=== PATIENT | female | born 1950 | race Caucasian/White ===

== ENCOUNTER → 2019-01-15 | Day surgery (SDC) | payer MEDICARE ==
[2019-01-10 17:26] LABS: BASOPHILS # (AUTO) 0.1 (0.0-0.1); BASOPHILS % 0.7 % (0.0-1.0); EOSINOPHILS # (AUTO) 0.4 (0.0-0.4); EOSINOPHILS % 3.1 % (0.0-6.0); HEMATOCRIT 42.7 % (34.2-44.1); HEMOGLOBIN 14.6 g/dL (12.0-16.0); LYMPHOCYTES # (AUTO) 3.7 (1.0-3.2); LYMPHOCYTES % 31.6 % (18.0-39.1); MEAN CORPUSCULAR HEMOGLOBIN 29.3 pg (28-32); MEAN CORPUSCULAR HGB CONC 34.2 g/dL (31-35); MEAN CORPUSCULAR VOLUME 85.7 fL (81-99); MONOCYTES # (AUTO) 0.4 (0.2-0.8); MONOCYTES % 3.7 % (4.4-11.3); NEUTROPHILS % 60.6 % (38.7-80.0); PLATELET COUNT 304 x10e3/uL (140-360); RED BLOOD COUNT 4.98 x10e6/uL (3.6-5.1); RED CELL DISTRIBUTION WIDTH 13.1 % (11.7-14.4)
[~2019-01-15] MED LIST: BENICAR20 MG PO; DICYCLOMINE HCL20 MG PO; DIOVAN160 MG PO; FENTANYL CITRATE/PF 100MCG/2 ML INJ ONE; GLIMEPIRIDE4 MG PO; GLUCAGON FOR INJ 1 MG VIAL ONE; HUMALOG100 UNIT/3 SQ; HYDROCHLOROTHIA25 MG PO; HYOSCYAMINE SULFATE 0.5 MG/ML INJ ONE; KLONOPIN1 MG PO; LIDOCAINE HCL 2% LOCAL INJ 5 ML SDV VIAL INJ ONE; MACROBID 100 M100 MG PO; MEDROL4 MG/DOSE-; METFORMIN HCL500 MG PO; MIDAZOLAM HCL 2 MG/2 ML VIAL ONE; MIRTAZAPINE15 MG PO; NEXIUM20 MG PO; PANTOPRAZOLE SO40 MG PO; PROPOFOL IV EMULSION 10 MG/ML 50 ML VIAL ONE; ULTRAM50 MG PO; ZESTORETIC 20-1 EAC1 PO
--- NOTE | 2019-01-16 06:15 | Operative Report ---
DATE OF PROCEDURE: 01/15/2019 SURGEON: Drew Riddle MD REFERRING PHYSICIAN: Dr. Braulio Rae in [place], [place]. PROCEDURE: Esophagogastroduodenoscopy with biopsies and colonoscopy with polypectomy. INDICATIONS FOR EGD: Upper abdominal pain, heartburn, indigestion. INDICATIONS FOR COLONOSCOPY: Lower abdominal pain and new onset constipation. MEDICATION: The patient was done under MAC, please see anesthesiologist's note. PROCEDURE IN DETAIL: With the patient in left lateral decubitus position, flexible fiberoptic Olympus gastroscope was introduced into the esophagus under direct visualization without any difficulty. There was some patchy erythema noted in distal esophagus. A minute tongue of velvety red mucosa was noted to extend proximally from the GE junction that was biopsied to rule out Cordoba's. The scope was then advanced with ease into the stomach and mucosa overlying the antrum and the body revealed some patchy erythema and low-grade to moderate edema and biopsies were obtained and sent to stain for H pylori. Some hyperplastic-appearing polyps were noted in the body of the stomach and somewhat partially excised with the cold biopsy forceps. The pylorus was intubated with ease and the scope was advanced all the way to the second portion of the duodenum. The scope was then withdrawn slowly, the mucosa overlying the second portion as well as the duodenal bulb grossly appeared to be within normal limits. Biopsies were obtained and sent to rule out sprue. The scope was then withdrawn back into the stomach and retroflexed, the mucosa overlying the fundus and cardia appeared to be within normal limits. The scope was then straightened out, it was subsequently withdrawn. The patient tolerated the procedure well. IMPRESSION: 1. Distal esophagitis, mild. 2. Rule out Cordoba esophagus. 3. Gastritis, biopsied, biopsies sent to stain for H pylori. 4. Gastric polyps, body, hyperplastic appearing, some partially excised with the cold biopsy forceps. 5. Rule out sprue. PLAN: Follow up histology. Increase Protonix to 40 mg one p.o. a.c. b.i.d. The patient was then turned around. After adequate lubrication of the anal canal, a flexible fiberoptic Olympus colonoscope was inserted into the rectum and advanced all the way to the cecum. The distal sigmoid colon was sharply angulated and negotiated with some difficulty. Of note, diverticular disease was noted throughout the colon. The scope was then withdrawn slowly and mucosa overlying the cecum, ascending colon, transverse colon other than for diverticular disease appeared grossly to be within normal limits. There were some retained stools, but visualization was fair. One polyp was hot biopsied from the descending colon. Diverticular disease was also noted in the sigmoid. The rectum grossly appeared to be within normal limits. The scope was then retroflexed into the distal rectum and small internal hemorrhoids were noted, none of which was actively bleeding. The scope was then straightened out, it was subsequently withdrawn, and patient tolerated procedure well. IMPRESSION: 1. Pandiverticulosis. 2. Descending colon polyp, hot biopsied. 3. Sharply angulated distal sigmoid colon. 4. Internal hemorrhoids none actively bleeding. PLAN: Follow up histology. Initiate high-fiber, low-fat diet. Initiate high-fiber supplement. Start Linzess 145 mcg one p.o. q.a.m. a.c. The patient might benefit from a followup colonoscopy in 5 years. Drew Riddle MD [facility] /[id number] cc: Dr. Braulio Rae [facility]
--- OUTSIDE RECORDS SUMMARY | 2019-01-17 17:38 | XMS REPORT ---
Author Author [facility] Address Unknown Phone Unavailable Care Team Providers Care Recording Artist Name Role Phone MIKE LOZOYA PP Unavailable TROY HERNANDEZ M.D. Unavailable Unavailable ELAYNE YU M.D. Unavailable Unavailable MITCH FRANCISCO II, M.D. Unavailable Unavailable Problems This patient has no known problems. Allergies, Adverse Reactions, Alerts This patient has no known allergies or adverse reactions. Medications This patient has no known medications. Encounters Start Date/Time End Date/Time Encounter Type Admission Type Attending [facility] Care Department Encounter ID 2017-11-03 05:45:00 Inpatient [facility] [id number] 2016-08-28 15:37:00 Inpatient [facility] [id number] 2017-10-29 06:53:00 2017-10-29 06:53:00 Outpatient [facility] [id number] 2017-08-31 17:59:00 2017-08-31 17:59:00 Outpatient [facility] [id number] 2016-11-18 01:45:00 2016-11-17 19:00:00 Inpatient [facility] [id number] 2016-11-03 16:23:00 2016-11-03 16:23:00 Emergency [facility] [id number] 2016-10-31 13:39:00 2016-10-31 13:39:00 Outpatient [facility] [id number] 2016-10-21 08:29:00 2016-10-21 08:29:00 Outpatient [facility] [id number] 2016-10-11 15:30:00 2016-10-11 15:30:00 Emergency [facility] [id number] Results Test Description Test Time Test Comments Text Results Atomic Results Result Comments CT Abdomen and Pelvis w/o Contrast 2018-12-17 13:32:29 Patient: TYLER STALLINGS Date/Time12/17/2018 13:17 CDTReason for ExamAbdominal painReportCT ABDOMEN AND CT PELVIS WITHOUT CONTRAST: MULTIPLANAR REFORMATSREASON FOR STUDY: Abdominal painRadiation dose lowering techniques were used with automated exposure control, adjusting the mA according to patient's size.COMPARISON: May 20, 2018.Multiple transverse images were obtained through the upper abdomen and the pelvis. Images were reconstructed in coronal and in sagittal planes. No intravenous or oral contrast material was administered, as ordered. Images were started at the lung bases and extended through the upper abdomen to below the pubic symphysis without IV or oral contrast. Examination is tailored as a stone protocol. The partially visualized lung bases appear clear. Calcified granuloma seen within the right lobe of the liver. Tiny calcified granuloma seen within the spleen. There are no calcified gallstones. The right adrenal gland appears unremarkable. Left adrenal nodule is again noted unchanged. Pancreas is atrophic. There are no intrarenal calculi and there is no obstructive uropathy. Cortical scarring of the right kidney is noted. Small 8 mm hyperdense cyst is seen within the inferior pole of the right kidney. Abdominal aorta and IVC are normal in caliber. There is no retroperitoneal or mesenteric adenopathy. Images were extended below the pubic symphysis. Uncomplicated diverticular changes are seen within the descending colon and sigmoid colon. No pericolonic inflammatory changes were identified to suggest acute diverticulitis. Prior hysterectomy is noted. There are degenerative vacuum disks with disc space narrowing at L4-L5 and L5-S1.IMPRESSION:1. No acute intra-abdominal abnormality.2. Uncomplicated diverticulosis.3. Left adrenal nodule unchanged.4. Prior hysterectomy. Final Dictated by: MD Farley Arthur LDictated DT/TM: 12/17/2018 1:27 pmSigned by: MD Farley Arthur LSigned (Electronic Signature): 12/17/2018 1:32 pm XR Abdomen 2 Views 2018-12-16 19:58:16 Patient: TYLER STALLINGS Date/Time12/16/2018 19:30 CDTReason for ExamAbdominal painReportEXAMINATION: KUB: AP upright and supine viewsCOMPARISON: CT abdomen and pelvis with contrast 05/20/2018CLINICAL INFORMATION: Abdominal painFINDINGS:No abnormal abdominal calcifications are seen. Pelvic phleboliths. The soft tissue shadows are normal. The abdominal gas pattern is within normal limits. Osseous structures are grossly intact. Visualized lung bases are clear.IMPRESSION:Nonspecific nonobstructive bowel gas pattern. Final Dictated by: MD Britany, YirDictated DT/TM: 12/16/2018 7:57 pmSigned by: MD Garg SamerSigned (Electronic Signature): 12/16/2018 7:58 pm US Art/Vein Abd/Pelvis/Scrotal Complete 2018-05-27 14:16:56 Patient: TYLER STALLINGS Date/Time05/27/2018 11:35 CDTReason for Examab pain;Please specifyReportTHE OFFICIAL RADIOLOGY REPORT BEGINS BELOW THIS LINEEXAM: Duplex Arterial Sonography of the Superior Mesenteric Artery, Celiac [place], Portal Vein, and Hepatic Veins.TECHNIQUE: Serial multiplanar grayscale imaging with and without Doppler interrogation including color flow imaging and Doppler waveform analysis. Fasting state.HISTORY: Abdominal pain.COMPARISON: None.FINDINGS:SMA:* Peak systolic velocity: 152 cm/s, normal < 275 cm/s, fasting state.* Peak diastolic velocity: 9.9 cm/s, normal < 45 cm/s, fasting state.Celiac [place]:* Peak systolic velocity: 207 cm/s, normal < 200 cm/s, fasting state.* Peak diastolic velocity: 33.4 cm/s, normal < 45 cm/s, fasting state.Portal Vein:* Peak systolic velocity: 2 cm/s, normal > 16 cm/s.* Diameter: 1.2 cm, normal < 1.3 cm.* Directional flow: Hepatopetal.Hepatic Veins:* Patency: Normal.IMPRESSION: Borderline abnormal velocity data was obtained from the celiac axis. Consider correlation with CTA or MRA for further evaluation of possible stenosis.THE OFFICIAL RADIOLOGY REPORT ENDS ABOVE THIS LINE Final Dictated by: MD Stock William BerryDictated DT/TM: 05/27/2018 2:10 pmSigned by: MD Stock William BerrySigned (Electronic Signature): 05/27/2018 2:16 pm XR Abdomen 2 Views 2018-05-25 17:29:46 Patient: TYLER STALLINGS Date/Time05/25/2018 16:58 CDTReason for ExamAbdominal painReportInformation: Left lower quadrant abdominal pain and constipationAbdomen 2 viewsCorrelation was made with patient's recent CT scan of the abdomen and pelvis.The bowel gas pattern is nonspecific with retained fecal matter within the colon. There are no gross masses, suspicious calcifications or free intraperitoneal air. Degenerative changes of the osseous structures is again noted.IMPRESSION:1. No significant intra-abdominal pathology2. Constipation changes. Final Dictated by: MD Metz Gustavo MDictated DT/TM: 05/25/2018 5:28 pmSigned by: MD Metz Gustavo MSigned (Electronic Signature): 05/25/2018 5:[address] Abdomen and Pelvis w/ Contrast 2018-05-20 10:43:33 Patient: TYLER STALLINGS Date/Time05/20/2018 10:18 CDTReason for ExamLeft sided abdominal pain; hx of diverticulitis;Abdominal painReportInformation: Abdominal pain, nausea, diverticulosis and diabetesCT scan of the abdomen and pelvis with oral and intravenous contrastMultiplanar reformatted images of the abdomen and pelvis were obtained following the oral administration of contrast medium and the intravenous injection of 100 mL of Omnipaque 300 nonionic contrast mediumCorrelation was made with the patient's prior CT scan of the abdomen and p richar dated 03/25/2018Left lung base scarring is again noted. Hepatic steatosis changes are again identified. No enhancing liver masses or biliary tree dilatation is noted. Calcified granuloma of the spleen again identified. Left adrenal gland nodule is stable. The pancreas is grossly unremarkable. Bilateral cortical renal cysts are again demonstrated. Atherosclerotic changes of the abdominal aorta and iliac arteries is again noted. Multiple colonic diverticula are again identified. No gross diverticulitis changes were demonstrated. Retained fecal matter noted within the colon. No focal fluid collections were noted. The patient is status post hysterectomy. Urinary bladder margins are preserved. No free intraperitoneal fluid is noted. 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 Left lower lobe scarring2. Hepatic steatosis3. Stable and unchanged left adrenal gland nodule4. Bilateral cortical renal cysts5. Colonic diverticulosis6. Status post hysterec candelaria.7. Constipation changes.Radiation dose lowering techniques were used with automated exposure control, adjusting the mA according to patient's size. Final Dictated by: MD Metz Gustavo MDictated DT/TM: 05/20/2018 10:37 amSigned by: MD Metz Gustavo MSigned (Electronic Signature): 05/20/2018 10:43 am XR CHEST 2 VIEWS 2017-11-02 12:44:27 CHEST 2 VIEW: PA and lateral viewsREASON FOR STUDY: Preoperative respiratory examination for partialnephrectomyFINDINGS:The heart and mediastinum are within normal limits. There are no activeinfiltrates or fluid. Bony structures appear intact. . No othersignificant findings. IMPRESSION: No active cardiopulmonary process identified. [id number]&PELVIS W/CONTRAST 2016-11-18 07:50:[address] PELVIS WITH CONTRAST: HISTORY: Abdominal pain, feverCOMPARISON: CT of 10/11/2016Multiple transverse images were obtained through the upper abdomen andthrough the pelvis during rapid intravenous administration of 100 mL ofIsovue-300 contrast material. Radiation reduction was achieved by usingautomatic exposure control, adjusting the mA according to the patient'ssize.No focal abnormalities are seen in the liver. No calcified gallstonesare seen in the gallbladder. The spleen is unremarkable. The pancreashas a normal appearance. No abnormalities are seen in the kidneys. No enlarged lymph nodes areseen in the upper abdomen or pelvis.No bowel distention is demonstrated. The appendix has a normal CTappearance.Multiple diverticula are seen in the descending and sigmoid colon. Thereis stranding noted around the mid sigmoid colon on the right side of thepelvis. No abnormal fluid collections or free air are identified.No masses are seen in the pelvis.IMPRESSION: 1. Findings of diverticulitis involving the mid sigmoid colon asdescribed.2. Diverticulosis of the descending and sigmoid colon.Preliminary report was faxed to the emergency room by Dr. Cordero at [id number]. XR ABDOMEN ACUTE COMPLETE W CHEST 2016-11-18 06:28:47 History: Constipation, abdominal painABDOMEN COMPLETE, 3 VIEWS:COMPARISON: 11/03/2016Supine and upright views of the abdomen were obtained.There is mild degenerative changes in the lumbar spine. Phleboliths areseen in the pelvis.The bowel gas pattern is normal. No free air or mass effect is observed.IMPRESSION:No significant abnormality is demonstrated.CHEST SINGLE VIEW:COMPARISON: 11/03/2016Cardiomediastinal structures are within normal limits. No pleural fluid or pulmonary infiltrates are identified. Mild scarringis seen at the left lower lung. The bony architecture appears intact, where adequately seen.IMPRESSION: No active cardiopulmonary process is identified. XR ABDOMEN ACUTE COMPLETE W CHEST 2016-11-03 19:48:37 XR ABDOMEN ACUTE COMPLETE W CHESTDIAGNOSIS: Abdominal painThe heart and mediastinum are stable. Fibrosis is unchanged in the leftlower lobe. No consolidation or pleural fluid is identified. The chestis unchanged since 07/30/2016.Postoperative changes are noted from a lower cervical fusion.The bowel gas pattern is unobstructed with a large amount of fecaldebris in the colon. 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 [id number]&PELVIS W/CONTRAST 2016-10-12 07:30:53 CT ABDOMEN AND PELVIS WITH CONTRAST:CLINICAL INFORMATION: Abdominal pain and distention. History ofulcerative colitis and diabetes. Diverticulitis.CORRELATION: June 14, 2016.Multiple transverse image s were obtained through the abdomen and pelvisafter oral contrast and during the IV administration of 95 mL ofIsovue-300 contrast material. The images were reformatted in the coronaland sagittal planes. Radiation dose lowering techniques were used withautomated exposure control, adjusting the mA according to patient'ssize.There are a few small bilateral renal cysts measuring up to 2 cm indiameter. The kidneys are otherwise unremarkable. There are noabnormalities seen in the ureters, or urinary bladder. Hypoattenuationof the liver is consistent with fatty infiltration. No focalabnormalities are seen in the liver or gallbladder. The spleen has anormal appearance. The pancreas is unremarkable. No masses or abnormalfluid collections are identified. There is sigmoid diverticulosis. Thereare no inflammatory changes. The uterus has been removed. Small pelviccalcifications resemble phleboliths. There is a degenerated disc and thelumbar spine at L4-5. There is lumbar facet arthrosis.IMPRESSION: 1. Fatty liver.2. Bilateral renal cysts3. 1.6 cm left adrenal nodule.4. Hysterectomy.5. Diverticulosis.6. Degenerative changes in the lumbar spine.7. There are no significant changes.The report was faxed to Dr. Aburto by Dr. Lockett on 10/11/2016 at 19:08hours. XR ABDOMEN COMPLETE 2016-10-11 15:59:06 ABDOMEN TWO VIEWS:REASON FOR STUDY: Abd painThere is no evidence of free air. There is mild to moderate colonicfecal retention without signs of obstruction. There are no abnormalabdominal or pelvic calcifications noted. The bones appear normal. IMPRESSION: Mild to moderate colonic fecal retention with no signs ofobstruction. No significant changes compared to 06/26/2016.
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
--- OUTSIDE RECORDS SUMMARY | 2019-01-17 17:38 | XMS REPORT | Continuity of Care Document ---
Author Author [facility] Organization [facility] Address Unknown Phone Unavailable Care Team Providers Care Velvet Steamer Name Role Phone DO Rae Christophe A. DO PCP Insurance Providers Guarantor YomiJosé Antonioa Address [address] [place] [address] Email N Payer [facility] Claim Division Policy Number [id number] Subscriber's Name Mariam Stallings Relationship Self / Same As Patient Group Number PLAN F Group Name MEDICARE SUPPLEMENT Effective Date 18 Payer Medicare Policy Number [id number] Subscriber's Name Mariam Stallings Relationship Self / Same As Patient Group Number NA Group Name MEDICARE Effective Date 13 Advance Directives Directive Response Recorded Date/Time Does the Patient have an Advance Directive? No 12/11/18 2:25pm Chief Complaint and Reason for Visit Chief Complaint Abdominal Pain Reason for Visit Constipation Problems Medical Problem Onset Date Status Chest [...] Abdominal pain in female patient Unknown Acute Constipation Unknown Acute Medications Current Home Medications Medication [...] A Day 10 Days 20 Capsule 10/15/18 Hydrocortisone/Pramoxine (Proctofoam-Hc) 10 Gm Foam 1 Applic Rectal Three Times A Day as needed for Discomfort 7 Days 10 Gram 12/11/18 Lactulose (Lactulose Liq,Constulose Liq, Enulose Liq) 10 [...] Every 4 Hours as needed for Pain [id number]/Sod Sulf,Bicarb,Cl/Kcl (Colyte) 4,000 Ml Soln.recon 4,000 Ml [...] Status Hx Tobacco Use Y - ECIG CURRENTLY 12/11/2018 2:25pm Not Applicable Not Applicable Smoking Status Start Date Stop Date Former Smoker Hospital Discharge Instructions No hospital discharge instruction information available. Plan of Care Discharge Date 12/11/18 8:48pm Disposition HOME, SELF-CARE 01 Condition at Discharge Stable Instructions/Education Provided Constipation, Adult (DC) Prescriptions See Medication Section Referrals ROLY RAE DO Address: [address] [place] [phone] Additional Instructions/Education Follow-up with your GI doctor. Return to the ER for any new or concerning symptoms. Functional Status Query Response Date Recorded Onset Within the Last 7 Days No Problem Identified December 11, 2018 2:25pm Allergies, Adverse Reactions, Alerts Allergen Type Severity [...] Recorded Date/Time HX of Pneumococcal Vaccine No 12/11/18 2:25pm HX of Influenza Vaccine No 12/11/18 2:25pm Tetanus Status Less Than 5 Years 12/11/18 2:25pm Vital Signs Acute Vital Signs Vital Response Date/Time Temperature (Fahrenheit) 98.0 degrees F (97.6 - 99.5) 12/11/2018 8:44pm Pulse Rate (adult) 59 bpm (60 - 100) 12/11/2018 7:56pm Pulse Rate 70 bpm 12/11/2018 8:44pm Respiratory Rate 16 breaths per minute (12 - 24) 12/11/2018 5:20pm Respiratory Rate 16 breaths per minute 12/11/2018 8:44pm Blood Pressure Systolic 112 mm Hg (100 - 140) 12/11/2018 7:56pm Blood Pressure Systolic 113 mm Hg 12/11/2018 8:44pm Blood Pressure Diastolic 63 mm Hg (60 - 90) 12/11/2018 7:56pm Blood Pressure Diastolic 72 mm Hg 12/11/2018 8:44pm Height 5 ft 4 in 12/11/2018 2:21pm Weight 164 lb 12/11/2018 2:21pm Body Mass Index 28.1 kg/m^2 12/11/2018 2:21pm Results Laboratory Results Test Name Result Units Flags Reference Collection Date/Time Result Date/Time Comments Neutrophils % (Manual) 48 % 42-75 11/22/2018 [...] Morphology Normal 11/22/2018 8:00pm 11/22/2018 10:07pm Urine RBC 0-2 /HPF 0-2 11/22/2018 7:45pm [...] Seen /HPF None 11/22/2018 7:45pm 11/22/2018 9:03pm Lipase 31 U/L 13-60 11/22/2018 8:00pm 11/22/2018 9:03pm White Blood Count 8.6 10*3/uL 4.5-11.5 12/11/2018 2:40pm 12/11/2018 3:10pm Red Blood Count 5.09 10*6/uL 3.8-5.1 12/11/2018 2:40pm 12/11/2018 3:10pm Hemoglobin 15.1 g/dL 12.0-15.2 12/11/2018 2:40pm 12/11/2018 3:10pm Hematocrit 44.8 % 34.0-45.5 12/11/2018 2:40pm 12/11/2018 3:10pm Mean Corpuscular Volume 88 fL 80-94 12/11/2018 2:40pm 12/11/2018 3:10pm Mean Corpuscular Hemoglobin 29.7 pg 27.0-33.0 12/11/2018 2:40pm 12/11/2018 3:10pm Mean Corpuscular Hemoglobin Concent 33.7 g/dL 33.0-37.0 12/11/2018 2:40pm 12/11/2018 3:10pm Red Cell Distribution Width 13.4 % 10.7-14.5 12/11/2018 2:40pm 12/11/2018 3:10pm Platelet Count 296 10*3/uL 150-450 12/11/2018 2:40pm 12/11/2018 3:10pm Mean Platelet Volume 10.2 fl 5.7-10.7 12/11/2018 2:40pm 12/11/2018 3:10pm Neutrophils (%) (Auto) 55 % 47-75 12/11/2018 2:40pm 12/11/2018 3:10pm Immature Granulocyte % (Auto) 1 % H 0-0 12/11/2018 2:40pm 12/11/2018 3:10pm Lymphocytes (%) (Auto) 38 % 25-44 12/11/2018 2:40pm 12/11/2018 3:10pm Monocytes (%) (Auto) 5 % 3-10 12/11/2018 2:40pm 12/11/2018 3:10pm Eosinophils (%) (Auto) 2 % 0-7 12/11/2018 2:40pm 12/11/2018 3:10pm Basophils (%) (Auto) 1 % 0-1 12/11/2018 2:40pm 12/11/2018 3:10pm Nucleated Red Blood Cells % 0.0 % 0-0.2 12/11/2018 2:40pm 12/11/2018 3:10pm Neutrophils # (Auto) 4.7 10*3/uL 1.3-6.7 12/11/2018 2:40pm 12/11/2018 3:10pm Immature Granulocyte # (Auto) 0.0 10*3/uL 0.0-0.0 12/11/2018 2:40pm 12/11/2018 3:10pm Lymphocytes # (Auto) 3.2 10*3/uL 1.4-4.1 12/11/2018 2:40pm 12/11/2018 3:10pm Monocytes # (Auto) 0.4 10*3/uL 0-1.3 12/11/2018 2:40pm 12/11/2018 3:10pm Eosinophils # (Auto) 0.1 10*3/uL 0-0.8 12/11/2018 2:40pm 12/11/2018 3:10pm Basophils # (Auto) 0.1 10*3/uL 0-0.1 12/11/2018 2:40pm 12/11/2018 3:10pm Nucleated Red Blood Cells # 0.00 10*3/uL 0-0.01 12/11/2018 2:40pm 12/11/2018 3:10pm Manual Differential Not Ind 12/11/2018 2:40pm 12/11/2018 3:10pm Urine Source URINE 12/11/2018 3:23pm 12/11/2018 3:30pm Urine Color Colorless Yel-Piper * 12/11/2018 3:23pm 12/11/2018 3:44pm Urine Appearance Clear Clear * 12/11/2018 3:23pm 12/11/2018 3:44pm Urine pH 7.0 5.0-8.0 12/11/2018 3:23pm 12/11/2018 3:44pm Urine Specific [place] 1.006 1.005-1.030 12/11/2018 3:23pm 12/11/2018 3:44pm Urine Protein Negative mg/dL Negative * 12/11/2018 3:23pm 12/11/2018 3:44pm Urine Glucose (UA) Negative mg/dL Negative * 12/11/2018 3:23pm 12/11/2018 3:44pm Urine Ketones Negative mg/dL Negative * 12/11/2018 3:23pm 12/11/2018 3:44pm Urine Occult Blood Negative Negative * 12/11/2018 3:23pm 12/11/2018 3:44pm Urine Nitrite Negative Negative 12/11/2018 3:23pm 12/11/2018 3:44pm Urine Bilirubin Negative mg/dL Negative 12/11/2018 3:23pm 12/11/2018 3:44pm Urine Urobilinogen Negative mg/dL 0.0-1.0 12/11/2018 3:23pm 12/11/2018 3:44pm Urine Leukocyte Esterase Negative Epifanio/uL Negative 12/11/2018 3:23pm 12/11/2018 3:44pm Microscopic Urinalysis (T) Not Ind 12/11/2018 3:23pm 12/11/2018 3:44pm Urinalysis Comment * * 12/11/2018 3:23pm 12/11/2018 3:44pm Ref Range=* Clinical evaluation required. Sodium Level 142 mmol/L 136-145 12/11/2018 2:40pm 12/11/2018 3:28pm Potassium Level 3.9 mmol/L 3.5-5.1 12/11/2018 2:40pm 12/11/2018 3:28pm Chloride Level 102 mmol/L 98-107 12/11/2018 2:40pm 12/11/2018 3:28pm Carbon Dioxide Level 22 mmol/L L 24-33 12/11/2018 2:40pm 12/11/2018 3:28pm Anion Gap 22 H 8-18 12/11/2018 2:40pm 12/11/2018 3:28pm Blood Urea Nitrogen 6 mg/dL L 8-23 12/11/2018 2:40pm 12/11/2018 3:28pm Creatinine 0.8 mg/dL 0.7-1.3 12/11/2018 2:4012/11/2018 3:28pm Estimat Glomerular Filtration Rate 75 50-100 12/11/2018 2:40pm 12/11/2018 3:28pm Stages of Patients with Estimated GFR Known [...] the result provided by 1.21. Glucose Level 88 mg/dL 60-100 12/11/2018 2:40pm 12/11/2018 3:28pm Calcium Level 10.2 mg/dL 8.3-10.5 12/11/2018 2:4012/11/2018 3:28pm Magnesium Level 2.08 mg/dL 1.70-2.55 12/11/2018 2:40pm 12/11/2018 3:28pm Total Bilirubin 0.3 mg/dL 0.0-1.0 12/11/2018 2:4012/11/2018 3:28pm Aspartate Amino Transf (AST/SGOT) 24 U/L 0-32 12/11/2018 2:40pm 12/11/2018 3:28pm Alanine Aminotransferase (ALT/SGPT) 16 U/L 0-33 12/11/2018 2:40pm 12/11/2018 3:28pm Total Protein 8.2 g/dL 6.4-8.3 12/11/2018 2:40pm 12/11/2018 3:28pm Albumin 4.7 g/dL 3.5-5.0 12/11/2018 2:40pm 12/11/2018 3:28pm Alkaline Phosphatase 77 U/L 53-154 12/11/2018 2:40pm 12/11/2018 3:28pm Procedures Procedure Status Date Provider(s) ROUTINE VENIPUNCTURE Completed 11/22/18 CT ABD & PELV W/CONTRAST Completed 11/22/18 COMPREHEN METABOLIC PANEL Completed 11/22/18 URINALYSIS AUTO W/O SCOPE Completed 11/22/18 ASSAY OF LIPASE Completed 11/22/18 COMPLETE CBC W/AUTO DIFF WBC Completed 11/22/18 HYDRATE IV INFUSION ADD-ON Completed 11/22/18 THER/PROPH/DIAG INJ IV PUSH Completed 11/22/18 TX/PRO/DX INJ NEW DRUG ADDON Completed 11/22/18 EMERGENCY DEPT VISIT Completed 11/22/18 Transparent film <=16 sq in Completed 11/22/18 Self-adher band w>=3" <5"/yd Completed 11/22/18 Morphine sulfate injection Completed 11/22/18 Ondansetron hcl injection Completed 11/22/18 Normal saline solution infus Completed 11/22/18 Completed 11/22/18 Computed tomography of abdomen and pelvis with contrast Completed 11/22/18 JONO LOCKWOOD MD ECG (electrocardiogram) Active 12/11/18 JENNA GOMEZ MD X-ray of abdomen, single view Completed 12/11/18 JENNA GOMEZ MD X-ray of chest, single view Completed 12/11/18 JENNA GOMEZ MD Encounters Encounter Location Arrival/Admit Date Discharge/Depart Date Attending Provider Departed Emergency Room [facility] 12/11/18 2:24pm 12/11/18 8:48pm ZANA BURGOS III, MD Departed Emergency Room [facility] 11/22/18 2:53pm 11/23/18 1:30am JONO LOCKWOOD MD Recent Diagnosis Constipation
== END | disposition home or self-care (01) ==
LOC: OR 13:42
PROVIDERS: ATTEND Internal Medicine Gastroenterology
DX: D12.4 Benign neoplasm of descending colon (principal); K31.7 Polyp of stomach and duodenum; K21.0 Gastro-esophageal reflux disease with esophagitis; K29.80 Duodenitis without bleeding; K29.70 Gastritis, unspecified, without bleeding; K57.30 Diverticulosis of large intestine without perforation or abscess without bleeding; K63.5 Polyp of colon; R10.30 Lower abdominal pain, unspecified; R11.0 Nausea; R12 Heartburn; K59.00 Constipation, unspecified; Z88.8 Allergy status to other drugs, medicaments and biological substances; Z88.6 Allergy status to analgesic agent; Z88.4 Allergy status to anesthetic agent; Z91.041 Radiographic dye allergy status; I10 Essential (primary) hypertension; K21.9 Gastro-esophageal reflux disease without esophagitis; K44.9 Diaphragmatic hernia without obstruction or gangrene; K58.9 Irritable bowel syndrome, unspecified; F41.9 Anxiety disorder, unspecified; F32.9 Major depressive disorder, single episode, unspecified; R53.1 Weakness; E11.9 Type 2 diabetes mellitus without complications; K64.8 Other hemorrhoids; Z79.84 Long term (current) use of oral hypoglycemic drugs
CPT/HCPCS: 36415 ×2; 43239; 45384; 82948; 85025; 88305; 88312; 93005; J1610; J1980; J2001; J2250; J2704; 45380

== ENCOUNTER 2019-03-18 16:58 | Inpatient (IN) | payer MEDICARE ==
[~2019-03-18] VITALS: Ht 162.6 cm; Wt 74.0 kg
[~2019-03-18 16:58] MED LIST changes: -FENTANYL CITRATE/PF 100MCG/2 ML INJ ONE; -GLUCAGON FOR INJ 1 MG VIAL ONE; -HYOSCYAMINE SULFATE 0.5 MG/ML INJ ONE; -LIDOCAINE HCL 2% LOCAL INJ 5 ML SDV VIAL INJ ONE; -MIDAZOLAM HCL 2 MG/2 ML VIAL ONE; -PROPOFOL IV EMULSION 10 MG/ML 50 ML VIAL ONE
--- OUTSIDE RECORDS SUMMARY | 2019-03-18 17:01 | XMS REPORT | Continuity of Care Document ---
Author Author [facility] Organization [facility] Address Unknown Phone Unavailable Care Team Providers Care New Patient Escort Name Role Phone DO Rae Christophe A. DO PCP Insurance Providers Guarantor HaylieJosé Antonio quinna Address [address] [place] [address] Email N Payer [facility] Claim Division Policy Number [id number] Subscriber's Name Mariam Celaya Relationship Self / Same As Patient Group Number PLAN F Group Name MEDICARE SUPPLEMENT Effective Date 18 Payer Medicare Policy Number [id number] Subscriber's Name Mariam Celaya Relationship Self / Same As Patient Group Number NA Group Name MEDICARE Effective Date 13 Advance Directives Directive Response Recorded Date/Time Does the Patient have an Advance Directive? No 02/24/19 3:45pm Chief Complaint and Reason for Visit Chief Complaint Abdominal Pain Reason for Visit Generalized weakness [id number] Problems Medical Problem Onset Date Status Chest [...] female patient Unknown Acute Constipation Unknown Acute Uncontrolled hypertension Unknown Acute Bradycardia Unknown Acute Hyperglycemia Unknown Acute Constipation Unknown Acute Adrenal nodule Unknown Acute Diverticulosis Unknown Acute Ileus Unknown Acute Calcification of abdominal aorta Unknown Acute Bilateral renal cysts Unknown Acute Generalized weakness Unknown Acute Seroma, postoperative Unknown Acute Medications Current Home Medications Medication [...] Every 4 Hours as needed for Pain [id number]/Sod Sulf,Bicarb,Cl/Kcl (Colyte) 4,000 Ml Soln.recon 4,000 Ml [...] Problem Response Recorded Date/Time Onset Date Status Status post colon resection 02/24/2019 10:08pm Unknown Resolved Hx Tobacco Use No 02/24/2019 3:05pm Not Applicable Not Applicable Hospital Discharge Instructions No hospital discharge instruction information available. Plan of Care Discharge Date 02/24/19 11:51pm Disposition HOME, SELF-CARE 01 Condition at Discharge Stable Instructions/Education Provided Colectomy, Open Surgery Colectomy, Laparoscopic Surgery Generalized Weakness (DC) Forms Provided Procedures & Tests Performed Work/School Release Prescriptions See Medication Section Referrals ROLY RAE DO Address: [address] [place] [phone] Functional Status No functional status information available. Allergies, Adverse Reactions, Alerts Allergen Type Severity Reaction Status Last Updated Hydrocodone Adverse Reaction Mild INSOM,RENE/AGITATION Active 02/24/19 Clavulanic acid / ticarcillin Allergy Unknown Active 02/04/19 Sulfamethoxazole Allergy Mild HIVES Active 02/04/19 Trimethoprim Allergy Mild HIVES Active 02/04/19 Ciprofloxacin Allergy Unknown Active 02/04/19 Metronidazole Allergy Unknown Active 02/04/19 Clarithromycin Allergy Unknown Active 02/04/19 Amoxicillin Allergy Unknown Active 02/04/19 Levofloxacin Allergy Unknown Active 02/04/19 NKA* Allergy Unknown Active 12/31/06 PO STEROIDS Allergy Mild Active 02/04/19 Immunizations Query Response on File Recorded Date/Time HX of Pneumococcal Vaccine No 02/24/19 3:05pm HX of Influenza Vaccine No 02/24/19 3:05pm Tetanus Status 5 - 10 Years 02/24/19 3:05pm Vital Signs Acute Vital Signs Vital Response Date/Time Temperature (Fahrenheit) 98.4 degrees F (97.6 - 99.5) 02/24/2019 11:50pm Pulse Rate (adult) 64 bpm (60 - 100) 02/24/2019 11:49pm Pulse Rate 64 bpm 02/24/2019 11:50pm Respiratory Rate 18 breaths per minute (12 - 24) 02/24/2019 11:49pm Respiratory Rate 18 breaths per minute 02/24/2019 11:50pm Blood Pressure Systolic 122 mm Hg (100 - 140) 02/24/2019 11:49pm Blood Pressure Systolic 122 mm Hg 02/24/2019 11:50pm Blood Pressure Diastolic 72 mm Hg (60 - 90) 02/24/2019 11:49pm Blood Pressure Diastolic 72 mm Hg 02/24/2019 11:50pm Results Laboratory Results Test Name Result Units Flags Reference Collection Date/Time Result Date/Time Comments Neutrophils (%) (Auto) 53 % 47-75 02/03/2019 6:32pm 02/03/2019 7:34pm Immature Granulocyte % (Auto) 0 % 0-0 02/03/2019 6:32pm 02/03/2019 7:34pm Lymphocytes (%) (Auto) 39 % 25-44 02/03/2019 6:32pm 02/03/2019 7:34pm Monocytes (%) (Auto) 4 % 3-10 02/03/2019 6:32pm 02/03/2019 7:34pm Eosinophils (%) (Auto) 3 % 0-7 02/03/2019 6:32pm 02/03/2019 7:34pm Basophils (%) (Auto) 1 % 0-1 02/03/2019 6:32pm 02/03/2019 7:34pm Nucleated Red Blood Cells % 0.0 % 0-0.2 02/03/2019 6:32pm 02/03/2019 7:34pm Neutrophils # (Auto) 4.8 10*3/uL 1.3-6.7 02/03/2019 6:32pm 02/03/2019 7:34pm Immature Granulocyte # (Auto) 0.0 10*3/uL 0.0-0.0 02/03/2019 6:32pm 02/03/2019 7:34pm Lymphocytes # (Auto) 3.4 10*3/uL 1.4-4.1 [facility]2019 [facility] 02/03/2019 7:34pm Monocytes # (Auto) 0.4 10*3/uL 0-1.3 02/03/2019 [facility] 02/03/2019 7:34pm Eosinophils # (Auto) 0.2 10*3/uL 0-0.8 02/03/2019 [facility] 02/03/2019 7:34pm Basophils # (Auto) 0.1 10*3/uL 0-0.1 02/03/2019 [facility] 02/03/2019 7:34pm Nucleated Red Blood Cells # 0.00 10*3/uL 0-0.01 02/03/2019 [facility] 02/03/2019 7:34pm Sodium Level 142 mmol/L 136-145 02/03/2019 [facility] 02/03/2019 8:30pm Potassium Level 3.9 mmol/L 3.5-5.1 02/03/2019 6[facility] 02/03/2019 8:30pm Chloride Level 104 mmol/L 98-107 02/03/2019 6[facility] 02/03/2019 8:30pm Carbon Dioxide Level 23 mmol/L L 24-33 02/03/2019 [facility] 02/03/2019 8:30pm Anion Gap 19 H 8-18 02/03/2019 [facility] 02/03/2019 8:30pm Blood Urea Nitrogen 10 mg/dL 8-23 02/03/2019 [facility] 02/03/2019 8:30pm Creatinine 0.8 mg/dL 0.7-1.3 02/03/2019 [facility] 02/03/2019 8:30pm Estimat Glomerular Filtration Rate 75 50-100 02/03/2019 [facility] 02/03/2019 8:30pm Stages of Patients with Estimated GFR Known [...] the result provided by 1.21. Glucose Level 120 mg/dL H 60-100 02/03/2019 6:02/03/2019 8:30pm Calcium Level 9.7 mg/dL 8.3-10.5 02/03/2019 6:02/03/2019 8:30pm Total Bilirubin 0.2 mg/dL 0.0-1.0 02/03/2019 6:02/03/2019 8:30pm Aspartate Amino Transf (AST/SGOT) 17 U/L 0-32 02/03/2019 6:02/03/2019 8:30pm Alanine Aminotransferase (ALT/SGPT) 10 U/L 0-33 02/03/2019 6:02/03/2019 8:30pm Total Protein 7.1 g/dL 6.4-8.3 02/03/2019 6:02/03/2019 8:30pm Albumin 4.1 g/dL 3.5-5.0 02/03/2019 6:02/03/2019 8:30pm Alkaline Phosphatase 65 U/L 53-154 02/03/2019 6:02/03/2019 8:30pm White Blood Count 13.0 10*3/uL H 4.5-11.5 02/24/2019 5:24pm 02/24/2019 5:38pm Red Blood Count 4.72 10*6/uL 3.8-5.1 02/24/2019 5:02/24/2019 5:38pm Hemoglobin 13.5 g/dL 12.0-15.2 02/24/2019 5:02/24/2019 5:38pm Hematocrit 42.8 % 34.0-45.5 02/24/2019 5:02/24/2019 5:38pm Mean Corpuscular Volume 91 fL 80-94 02/24/2019 5:02/24/2019 5:38pm Mean Corpuscular Hemoglobin 28.6 pg 27.0-33.0 02/24/2019 5:2402/24/2019 5:38pm Mean Corpuscular Hemoglobin Concent 31.5 g/dL L 33.0-37.0 02/24/2019 5:02/24/2019 5:38pm Red Cell Distribution Width 13.7 % 10.7-14.5 02/24/2019 5:24pm 02/24/2019 5:38pm Platelet Count 454 10*3/uL H 150-450 02/24/2019 5:24pm 02/24/2019 5:38pm Mean Platelet Volume 10.4 fl 5.7-10.7 02/24/2019 5:24pm 02/24/2019 5:38pm Manual Differential ----- 02/24/2019 5:pm 02/24/2019 5:38pm Neutrophils % (Manual) 66 % 42-75 02/24/2019 5:24pm 02/24/2019 6:04pm Lymphocytes % (Manual) 29 % 21-51 02/24/2019 5:24pm 02/24/2019 6:04pm Monocytes % (Manual) 1 % 1-9 02/24/2019 5:24pm 02/24/2019 6:04pm Eosinophils % (Manual) 4 % 0-7 02/24/2019 5:24pm 02/24/2019 6:04pm Platelet Estimate Increased 02/24/2019 5:24pm 02/24/2019 6:04pm Red Blood Cell Morphology Normal 02/24/2019 5:24pm 02/24/2019 6:04pm Urine Source URINE 02/24/2019 5:pm 02/24/2019 5:20pm Urine Color Yellow Yel-Piper * 02/24/2019 5:16pm 02/24/2019 5:26pm Urine Appearance Clear Clear * 02/24/2019 5:16pm 02/24/2019 5:26pm Urine pH 7.0 5.0-8.0 02/24/2019 5:16pm 02/24/2019 5:26pm Urine Specific Nova 1.014 1.005-1.030 02/24/2019 5:16pm 02/24/2019 5:26pm Urine Protein Negative mg/dL Negative * 02/24/2019 5:16pm 02/24/2019 5:26pm Urine Glucose (UA) Negative mg/dL Negative * 02/24/2019 5:16pm 02/24/2019 5:26pm Urine Ketones Negative mg/dL Negative * 02/24/2019 5:16pm 02/24/2019 5:26pm Urine Occult Blood Negative Negative * 02/24/2019 5:16pm 02/24/2019 5:26pm Urine Nitrite Negative Negative 02/24/2019 5:16pm 02/24/2019 5:26pm Urine Bilirubin Negative mg/dL Negative 02/24/2019 5:16pm 02/24/2019 5:26pm Urine Urobilinogen Negative mg/dL 0.0-1.0 02/24/2019 5:16pm 02/24/2019 5:26pm Urine Leukocyte Esterase 75 Epifanio/uL H Negative 02/24/2019 5:16pm 02/24/2019 5:26pm Microscopic Urinalysis (T) ----- 02/24/2019 5:16pm 02/24/2019 5:26pm Urine RBC 3-10 /HPF H 0-2 02/24/2019 5:16pm 02/24/2019 5:39pm Urine WBC 0-5 /HPF 0-5 02/24/2019 5:16pm 02/24/2019 5:39pm Urine Epithelial Cells Rare /HPF Few 02/24/2019 5:16pm 02/24/2019 5:39pm Urine Crystals None Seen /HPF None * 02/24/2019 5:16pm 02/24/2019 5:39pm Urine Bacteria Few /HPF A None 02/24/2019 5:16pm 02/24/2019 5:39pm Urine Casts Present /LPF A None * 02/24/2019 5:16pm 02/24/2019 5:39pm Urine Hyaline Casts 2-5 /LPF H 0-1 02/24/2019 5:16pm 02/24/2019 5:39pm Urine Yeast None Seen /HPF None 02/24/2019 5:16pm 02/24/2019 5:39pm Urinalysis Comment * * 02/24/2019 5:16pm 02/24/2019 5:26pm Ref Range=* Clinical evaluation required. Urine Culture Indicated To follow A 02/24/2019 5:16pm 02/24/2019 5:39pm Lipase 21 U/L 13-60 02/24/2019 7:31pm 02/24/2019 7:52pm Bedside Sodium 138 mmol/L 136-145 02/24/2019 6:38pm 02/24/2019 6:42pm Bedside Potassium 4.1 mmol/L 3.5-5.1 02/24/2019 6:38pm 02/24/2019 6:42pm Bedside Chloride 105 mmol/L 100-112 02/24/2019 6:38pm 02/24/2019 6:42pm Bedside Total CO2 22.0 mmol/L L 24.0-33.0 02/24/2019 6:38pm 02/24/2019 6:42pm Bedside Blood Urea Nitrogen 9 mg/dL 8-23 02/24/2019 6:38pm 02/24/2019 6:42pm Bedside Creatinine 0.7 mg/dL 0.7-1.3 02/24/2019 6:38pm 02/24/2019 6:42pm Bedside Glucose 98 mg/dL 60-100 02/24/2019 6:38pm 02/24/2019 6:42pm Bedside Whole Blood Ionized Calcium 1.03 mmol/L L 1.12-1.32 02/24/2019 6:38pm 02/24/2019 6:42pm Bedside Troponin I 0.00 ng/mL 0.00-0.07 02/24/2019 10:27pm 02/24/2019 11:17pm *NOTE: ED bedside Cardiac Marker results may not correlate directly with results from Clinical Lab due to differences in methodologies. Bedside Anion Gap 17 8-18 02/24/2019 6:38pm 02/24/2019 6:42pm Estimat Glomerular Filtration Rate 88 50-100 02/24/2019 6:38pm 02/24/2019 6:42pm Stages of Patients with Estimated GFR Known [...] Americans, multiply the result provided by 1.21. Bedside Hemoglobin 14.3 g/dL 12.0-15.2 02/24/2019 6:38pm 02/24/2019 6:42pm Bedside Hematocrit 42.0 % 35.0-45.0 02/24/2019 6:38pm 02/24/2019 6:42pm Bedside Lactic Acid Venous 1.68 mmol/L 0.50-2.20 02/24/2019 5:28pm 02/24/2019 5:32pm Procedures Procedure Status Date Provider(s) ROUTINE VENIPUNCTURE Completed 02/03/[address] ABD & PELV W/CONTRAST Completed 02/03/19 COMPREHEN METABOLIC PANEL Completed 02/03/19 COMPLETE CBC W/AUTO DIFF WBC Completed 02/03/19 EMERGENCY DEPT VISIT Completed 02/03/19 Transparent film <=16 sq in Completed 02/03/19 Locm 300-399mg/ml iodine,1ml Completed 02/03/19 Computed tomography of abdomen and pelvis with contrast Completed 02/03/19 CONCETTA MURRAY MD Computed tomography of abdomen and pelvis with contrast Completed 02/24/19 SD PRINCE APN ECG (electrocardiogram) Active 02/24/19 MICKEY ELIAS DO Encounters Encounter Location Arrival/Admit Date Discharge/Depart Date Attending Provider Departed Emergency Room [facility] 02/24/19 3:45pm 02/24/19 11:51pm MICKEY ELIAS DO Departed Emergency Room [facility] 02/03/19 6:31pm 02/03/19 10:43pm DIANNE LIU MD Recent Diagnosis
--- OUTSIDE RECORDS SUMMARY | 2019-03-18 17:01 | XMS REPORT | Continuity of Care Document ---
Author Author [facility] Organization [facility] Address Unknown Phone Unavailable Care Team Providers Care Statistical Typist Name Role Phone DO Rae Christophe A. DO PCP Insurance Providers Guarantor YomiJosé Antonioa Address [address] [place] [address] Email N Payer [facility] Claim Division Policy Number [id number] Subscriber's Name Mariam Stallings Relationship Self / Same As Patient Group Number PLAN F Group Name MEDICARE SUPPLEMENT Effective Date 18 Payer Medicare Policy Number [id number] Subscriber's Name Mariam Stallings Relationship Self / Same As Patient Group Number NA Group Name MEDICARE Effective Date 13 Advance Directives Directive Response Recorded Date/Time Does the Patient have an Advance Directive? No 02/03/19 5:55pm Chief Complaint and Reason for Visit Chief Complaint Constipation Reason for Visit Uncontrolled hypertension Adrenal nodule Bradycardia Diverticulosis Hyperglycemia Ileus Calcification of abdominal aorta Abdominal pain Bilateral renal cysts Constipation Problems Medical Problem Onset Date Status [...] Unknown Acute Bilateral renal cysts Unknown Acute Medications Current Home Medications Medication [...] Every 4 Hours as needed for Pain [id number]/Sod Sulf,Bicarb,Cl/Kcl (Colyte) 4,000 Ml Soln.recon 4,000 Ml [...] Date Status Hx Tobacco Use Y - Vapes 02/03/2019 8:39pm Not Applicable Not Applicable Smoking Status Start Date Stop Date Current Every Day Smoker Hospital Discharge Instructions No hospital discharge instruction information available. Plan of Care Discharge Date 02/03/19 10:43pm Disposition HOME, SELF-CARE 01 Condition at Discharge Stable Instructions/Education Provided Atherosclerosis Diverticulosis Chronic Pain (DC) Acute Abdomen (Belly Pain), Adult (DC) Hyperglycemia, Adult (DC) Nausea and Vomiting, Adult (DC) Bradycardia (DC) Controlling Your Blood Pressure Through Lifestyle Diabetes and Diet Forms Provided Procedures & Tests Performed Work/School Release Prescriptions See Medication Section Referrals ROLY RAE DO Address: [address] [place] [phone] Note: Additional Instructions/Education Please read and follow all discharge instructions provided. Please follow-up with your general surgeon within 1 week for reassessment. Please return to the emergency department immediately if abdominal pain becomes severe, vomiting unable to tolerate oral fluids, unable to pass gas or stools, fever or any other symptoms of significance or concerns develop. Functional Status Query Response Date Recorded Onset Within the Last 7 Days No Problem Identified February 03, 2019 5:55pm Allergies, Adverse Reactions, Alerts Allergen Type Severity [...] Recorded Date/Time HX of Pneumococcal Vaccine No 02/03/19 5:55pm HX of Influenza Vaccine No 02/03/19 5:55pm Tetanus Status Less Than 5 Years 02/03/19 8:39pm Vital Signs Acute Vital Signs Vital Response Date/Time Temperature (Fahrenheit) 98.2 degrees F (97.6 - 99.5) 02/03/2019 10:43pm Pulse Rate (adult) 53 bpm (60 - 100) 02/03/2019 10:05pm Pulse Rate 53 bpm 02/03/2019 10:43pm Respiratory Rate 16 breaths per minute (12 - 24) 02/03/2019 10:05pm Respiratory Rate 16 breaths per minute 02/03/2019 10:43pm Blood Pressure Systolic 124 mm Hg (100 - 140) 02/03/2019 10:05pm Blood Pressure Systolic 124 mm Hg 02/03/2019 10:43pm Blood Pressure Diastolic 49 mm Hg (60 - 90) 02/03/2019 10:05pm Blood Pressure Diastolic 49 mm Hg 02/03/2019 10:43pm Height 5 ft 4 in 02/03/2019 5:55pm Weight 166 lb 02/03/2019 5:55pm Body Mass Index 28.5 kg/m^2 02/03/2019 5:55pm Results Laboratory Results Test Name Result Units Flags Reference Collection Date/Time Result Date/Time Comments White Blood Count 8.9 10*3/uL 4.5-11.5 02/03/2019 6:32pm 02/03/2019 7:34pm Red Blood Count 4.68 10*6/uL 3.8-5.1 02/03/2019 6:32pm 02/03/2019 7:34pm Hemoglobin 13.3 g/dL 12.0-15.2 02/03/2019 6:32pm 02/03/2019 7:34pm Hematocrit 40.8 % 34.0-45.5 02/03/2019 6:32pm 02/03/2019 7:34pm Mean Corpuscular Volume 87 fL 80-94 02/03/2019 6:[facility] 02/03/2019 7:34pm Mean Corpuscular Hemoglobin 28.4 pg 27.0-33.0 02/03/2019 6:[facility] 02/03/2019 7:34pm Mean Corpuscular Hemoglobin Concent 32.6 g/dL L 33.0-37.0 02/03/2019 6:[facility] 02/03/2019 7:34pm Red Cell Distribution Width 13.2 % 10.7-14.5 02/03/2019 6:[facility] 02/03/2019 7:34pm Platelet Count 286 10*3/uL 150-450 02/03/2019 6:[facility] 02/03/2019 7:34pm Mean Platelet Volume 10.7 fl 5.7-10.7 02/03/2019 6:[facility] 02/03/2019 7:34pm Neutrophils (%) (Auto) 53 % 47-75 02/03/2019 6:[facility] 02/03/2019 7:34pm Immature Granulocyte % (Auto) 0 % 0-0 02/03/2019 6:[facility] 02/03/2019 7:34pm Lymphocytes (%) (Auto) 39 % 25-44 02/03/2019 6:[facility] 02/03/2019 7:34pm Monocytes (%) (Auto) 4 % 3-10 02/03/2019 6:[facility] 02/03/2019 7:34pm Eosinophils (%) (Auto) 3 % 0-7 02/03/2019 6:[facility] 02/03/2019 7:34pm Basophils (%) (Auto) 1 % 0-1 02/03/2019 6:[facility] 02/03/2019 7:34pm Nucleated Red Blood Cells % 0.0 % 0-0.2 02/03/2019 6:[facility] 02/03/2019 7:34pm Neutrophils # (Auto) 4.8 10*3/uL 1.3-6.7 02/03/2019 6:[facility] 02/03/2019 7:34pm Immature Granulocyte # (Auto) 0.0 10*3/uL 0.0-0.0 02/03/2019 6:[facility] 02/03/2019 7:34pm Lymphocytes # (Auto) 3.4 10*3/uL 1.4-4.1 02/03/2019 6:[facility] 02/03/2019 7:34pm Monocytes # (Auto) 0.4 10*3/uL 0-1.3 02/03/2019 6:[facility] 02/03/2019 7:34pm Eosinophils # (Auto) 0.2 10*3/uL 0-0.8 02/03/2019 6:[facility] 02/03/2019 7:34pm Basophils # (Auto) 0.1 10*3/uL 0-0.1 02/03/2019 6:[facility] 02/03/2019 7:34pm Nucleated Red Blood Cells # 0.00 10*3/uL 0-0.01 02/03/2019 6:[facility] 02/03/2019 7:34pm Manual Differential Not Ind 02/03/2019 6:[facility] 02/03/2019 7:34pm Sodium Level 142 mmol/L 136-145 02/03/2019 6:[facility] 02/03/2019 8:30pm Potassium Level 3.9 mmol/L 3.5-5.1 02/03/2019 6:[facility] 02/03/2019 8:30pm Chloride Level 104 mmol/L 98-107 02/03/2019 6:[facility] 02/03/2019 8:30pm Carbon Dioxide Level 23 mmol/L L 24-33 02/03/2019 6:[facility] 02/03/2019 8:30pm Anion Gap 19 H 8-18 02/03/2019 6:[facility] 02/03/2019 8:30pm Blood Urea Nitrogen 10 mg/dL 8-23 02/03/2019 6:[facility] 02/03/2019 8:30pm Creatinine 0.8 mg/dL 0.7-1.3 02/03/2019 6:[facility] 02/03/2019 8:30pm Estimat Glomerular Filtration Rate 75 50-100 02/03/2019 6:[facility] 02/03/2019 8:30pm Stages of Patients with Estimated [...] Glucose Level 120 mg/dL H 60-100 02/03/2019 6:32pm 02/03/2019 8:30pm Calcium Level 9.7 mg/dL 8.3-10.5 02/03/2019 6:32pm 02/03/2019 8:30pm Total Bilirubin 0.2 mg/dL 0.0-1.0 02/03/2019 6:32pm 02/03/2019 8:30pm Aspartate Amino Transf (AST/SGOT) 17 U/L 0-32 02/03/2019 6:32pm 02/03/2019 8:30pm Alanine Aminotransferase (ALT/SGPT) 10 U/L 0-33 02/03/2019 6:32pm 02/03/2019 8:30pm Total Protein 7.1 g/dL 6.4-8.3 02/03/2019 6:32pm 02/03/2019 8:30pm Albumin 4.1 g/dL 3.5-5.0 02/03/2019 6:32pm 02/03/2019 8:30pm Alkaline Phosphatase 65 U/L 53-154 02/03/2019 6:32pm 02/03/2019 8:30pm Procedures Procedure Status Date Provider(s) Computed tomography of abdomen and pelvis with contrast Completed 02/03/19 CONCETTA MURRAY MD Encounters Encounter Location Arrival/Admit Date Discharge/Depart Date Attending Provider Departed Emergency Room [facility] 02/03/19 6:31pm 02/03/19 10:43pm DIANNE LIU MD Recent Diagnosis Bradycardia Hyperglycemia Ileus Abdominal pain Constipation
[2019-03-18] MEDS ORDERED: TYLENOL WITH C1 EACH PO (17:37)
--- NOTE | 2019-03-18 17:40 | NUR ---
REC'D PT IN RM 3 WITH C/O ABD. PAIN. PLACED ON THE MONITOR AND IN A G0WN. BED LOW/LOCKED AND CALL IVAN WITHIN REACH.
[2019-03-18 17:46] LABS: BILIRUBIN,URINE NEGATIVE (NEGATIVE); CLARITY,URINE SL CLOUDY (CLEAR); COLOR,URINE YELLOW (YELLOW); KETONES,URINE NEGATIVE (NEGATIVE); LEUKOCYTE ESTERASE ,URINE SMALL (NEGATIVE); NITRITE,URINE NEGATIVE (NEGATIVE); PROTEIN,URINE DIPSTICK NEGATIVE (NEGATIVE); URINE UROBILINOGEN 0.2 mg/dL (0.2 - 1)
--- NOTE | 2019-03-18 17:50 | NUR ---
HOME MEDS CONFIRMED WITH PATIENT.
[2019-03-18 18:05] LABS: ALANINE AMINOTRANSFERASE 10 IU/L (0-55); ALBUMIN 4.1 g/dL (3.5-5.0); ALBUMIN/GLOBULIN RATIO 1.1 (0.8-2.0); ALKALINE PHOSPHATASE 83 IU/L (40-150); ANION GAP 14.5 mmol/L (8-16); BLOOD UREA NITROGEN 7 mg/dL (7-26); BUN/CREATININE RATIO 9 (6-25); CALCIUM 9.8 mg/dL (8.4-10.2); CARBON DIOXIDE 26 mmol/L (22-29); CHLORIDE 102 mmol/L (98-107); CREATININE, SERUM 0.77 mg/dL (0.57-1.11); EST GLOMERULAR FILTRATION RATE > 60 ML/MIN (60-); GLUCOSE 78 mg/dL (74-118); LIPASE 34 U/L (8-78); POTASSIUM 3.5 mmol/L (3.5-5.1); SODIUM 139 mmol/L (136-145)
[2019-03-18 18:12] LABS: BASOPHILS # (AUTO) 0.1 (0.0-0.1); BASOPHILS % 0.5 % (0.0-1.0); EOSINOPHILS # (AUTO) 0.1 (0.0-0.4); EOSINOPHILS % 0.8 % (0.0-6.0); HEMATOCRIT 43.7 % (34.2-44.1); HEMOGLOBIN 14.5 g/dL (12.0-16.0); LYMPHOCYTES # (AUTO) 3.6 (1.0-3.2); LYMPHOCYTES % 27.4 % (18.0-39.1); MEAN CORPUSCULAR HEMOGLOBIN 28.4 pg (28-32); MEAN CORPUSCULAR HGB CONC 33.2 g/dL (31-35); MEAN CORPUSCULAR VOLUME 85.7 fL (81-99); MONOCYTES # (AUTO) 0.5 (0.2-0.8); MONOCYTES % 4.1 % (4.4-11.3); NEUTROPHILS # (AUTO) 8.8 (2.1-6.9); NEUTROPHILS % 66.9 % (38.7-80.0); PLATELET COUNT 351 x10e3/uL (140-360); RED CELL DISTRIBUTION WIDTH 13.5 % (11.7-14.4)
[2019-03-18 18:19] LABS: BACTERIA,URINE RARE /HPF; EPITHELIAL CELLS,URINE MODERATE /LPF; WBC,URINE (MAN) 0-5 /HPF (0-5)
[2019-03-18] MEDS ORDERED: IOPAMIDOL 370 MG/ML 200 ML INFUS..BTL INJ ONE (18:48)
[2019-03-18] MEDS ORDERED: SODIUM CHLORIDE 0.9% 50ML 50 ML ONE (18:48)
--- NOTE | 2019-03-18 19:32 | Diagnostic Imaging Report ---
EXAMINATION: CT of the abdomen and pelvis with contrast. TECHNIQUE: Spiral CT images of the abdomen and pelvis were performed from the lung bases to the lesser trochanters after the intravenous administration of 100 cc of Isovue 370 and the oral administration of water. Coronal and sagittal reformatted images were obtained. COMPARISON: None. CLINICAL HISTORY:Abdominal pain, status post colon resection 5 weeks ago DISCUSSION: ABDOMEN/PELVIS: LOWER THORAX:Unremarkable. HEPATOBILIARY: Diffuse decreased attenuation of the hepatic parenchyma compared to the spleen, consistent with steatosis. No focal lesions. No intra or extrahepatic biliary ductal dilation. GALLBLADDER: No radio-opaque stones or sludge. No wall thickening. SPLEEN: No splenomegaly. PANCREAS: No focal masses or ductal dilatation. ADRENALS: 1.6 cm enhancing nodule in the left adrenal gland (series 2, image 25). Right adrenal gland is unremarkable. KIDNEYS/URETERS: No hydronephrosis or stones. 1.7 cm well-circumscribed intracortical lesion in the lateral mid to inferior right kidney (series 2, image 40), with measured density of 50 HU. Subcentimeter hypodense lesions in both kidneys, which are too small to characterize but likely represent small cysts. PELVIC ORGANS/BLADDER: Bladder is unremarkable. Uterus is absent. No adnexal masses. PERITONEUM/RETROPERITONEUM: No free air or fluid. LYMPH NODES: No intra-abdominal, retroperitoneal, pelvic or inguinal lymphadenopathy. VESSELS: The celiac trunk,superior and inferior mesenteric and bilateral renal arteries are patent The portal, superior mesenteric and splenic veins are patent. GI TRACT: No bowel dilation or evidence of obstruction. Sutures are noted in the sigmoid colon. Sigmoid diverticulosis, without diverticulitis. Appendix is well identified and normal in caliber. BONES AND SOFT TISSUE: No aggressive lytic lesions. Degenerative disc changes in the lower lumbosacral spine, worse at L4-L5 and L5-S1. Soft tissue stranding in the anterior pelvic wall, consistent with postoperative changes. There is a 4.6 x 2.2 x 4.6 cm peripherally enhancing well-defined fluid collection in the subcutaneous tissues of the left anterior pelvic wall (series 2, image 71 and sagittal image 77). No other fluid collections are seen. IMPRESSION: 1. 4.6 x 2.2 x 4.6 cm abscess in the subcutaneous tissues of the left anterior pelvic wall. 2. Postoperative changes in the colon, without evidence of perforation or intra-abdominal pelvic abscess. 3. Sigmoid diverticulosis, without diverticulitis. 4. Indeterminate 1.6 cm enhancing nodule in the left adrenal gland. This can be assessed with CT abdomen with adrenal mass protocol on a nonemergent basis. 5. 1.7 cm well-circumscribed intracortical lesion in the right kidney which does not measure simple fluid and is indeterminate. Given the possibility of pseudoenhancement, further evaluation with contrast-enhanced MRI with renal mass protocol is recommended. 6. Diffuse hepatic steatosis. Signed by: Dr. Brian Rodriguez M.D. on 03/18/2019 7:29 PM
--- NOTE | 2019-03-18 20:35 | NUR ---
pt requesting pain medication. dr. trevizo informed
[2019-03-18] MEDS: LIDOCAINE 5% PATCH TP SCH (21:54)
--- NOTE | 2019-03-18 22:20 | NUR ---
PT PLACED ON TELEMETRY BOX #[id number]
[2019-03-18 22:40] VITALS: BP 150/70
--- NOTE | 2019-03-18 22:40 | NUR ---
RECEIVED PATIENT FROM ED AT THIS TIME. PATIENT AMBULATED FROM STRETCHER TO BED, STEADY GAIT NOTED. PATIENT REPORTS PAIN IS MINIMAL AT THIS TIME. LUNG SOUNDS CLEAR. BOWEL SOUNDS NORMAL. HEALING INCISION AND TROCHAR SITES TO ABDOMEN NOTED, NO REDNESS OR DRAINAGE. SKIN INTACT. PATIENT ORIENTED TO ROOM. BED LOCKED IN LOWEST POSITION, SIDE RAILS UPX2, CALL LIGHT IN REACH.
[2019-03-18 22:47] LABS: CREATINE KINASE 27 IU/L (29-168)
--- NOTE | 2019-03-18 23:07 | NUR ---
PAGE PLACED TO MD SNEED TO RESTART HOME MEDS AND GET ORDERS FOR PAIN AND NAUSEA.
--- NOTE | 2019-03-18 23:49 | NUR ---
MD Cristian ADAMSON COVERING FOR MD SNEED. ORDERS TO START HOME MEDS, NO NEW PAIN MEDS UNTIL SEEN BY .
[2019-03-19] VITALS (8 sets, daily range): BP systolic 94–150; BP diastolic 51–70
[2019-03-19] MEDS: CLONAZEPAM 1 MG TAB PO PRN ×3 (00:20→22:26)
--- NOTE | 2019-03-19 01:00 | NUR ---
CLARIFICATION ON CARDIAC MARKERS. BLOOD DRAWN IN ED AT 1710. CARDIAC MARKERS NOT DONE AT THAT TIME. ADD-ON CARDIAC MARKERS TO BLOOD DRAWN AT 1710 DONE AT 2103. SECOND SET OF CARDIAC MARKERS NOW, AT 0110. FINAL SET TO BE DONE AT 0910.
[2019-03-19 02:37] LABS: CREATINE KINASE 26 IU/L (29-168)
[2019-03-19] MEDS ORDERED: ACETAMINOPHEN/CODEINE 300MG - 30MG TAB PO SCH (06:00)
[2019-03-19 06:26] LABS: BASOPHILS # (AUTO) 0.1 (0.0-0.1); BASOPHILS % 0.5 % (0.0-1.0); EOSINOPHILS # (AUTO) 0.2 (0.0-0.4); EOSINOPHILS % 1.7 % (0.0-6.0); HEMATOCRIT 39.4 % (34.2-44.1); HEMOGLOBIN 12.7 g/dL (12.0-16.0); LYMPHOCYTES # (AUTO) 3.1 (1.0-3.2); LYMPHOCYTES % 31.4 % (18.0-39.1); MEAN CORPUSCULAR HEMOGLOBIN 27.9 pg (28-32); MEAN CORPUSCULAR HGB CONC 32.2 g/dL (31-35); MEAN CORPUSCULAR VOLUME 86.4 fL (81-99); MONOCYTES # (AUTO) 0.6 (0.2-0.8); MONOCYTES % 6.5 % (4.4-11.3); NEUTROPHILS # (AUTO) 5.8 (2.1-6.9); NEUTROPHILS % 59.6 % (38.7-80.0); PLATELET COUNT 287 x10e3/uL (140-360); RED BLOOD COUNT 4.56 x10e6/uL (3.6-5.1); RED CELL DISTRIBUTION WIDTH 13.6 % (11.7-14.4)
[2019-03-19] MEDS ORDERED: ACETAMINOPHEN/CODEINE 300MG - 30MG TAB PO PRN (06:45)
[2019-03-19 06:47] LABS: ALANINE AMINOTRANSFERASE 8 IU/L (0-55); ALBUMIN 3.5 g/dL (3.5-5.0); ALBUMIN/GLOBULIN RATIO 1.1 (0.8-2.0); ALKALINE PHOSPHATASE 71 IU/L (40-150); ANION GAP 12.4 mmol/L (8-16); BLOOD UREA NITROGEN 6 mg/dL (7-26); BUN/CREATININE RATIO 9 (6-25); CALCIUM 9.5 mg/dL (8.4-10.2); CARBON DIOXIDE 25 mmol/L (22-29); CHLORIDE 106 mmol/L (98-107); CREATININE, SERUM 0.66 mg/dL (0.57-1.11); EST GLOMERULAR FILTRATION RATE > 60 ML/MIN (60-); GLUCOSE 90 mg/dL (74-118); MAGNESIUM 2.4 MG/DL (1.3-2.1); PHOSPHORUS 3.8 MG/DL (2.3-4.7); POTASSIUM 3.4 mmol/L (3.5-5.1); SODIUM 140 mmol/L (136-145)
[2019-03-19] MEDS: METFORMIN HCL 500 MG TAB PO SCH ×4 (07:56→20:51)
[2019-03-19] MEDS: LIDOCAINE 5% PATCH TP SCH (09:07)
[2019-03-19] MEDS: PANTOPRAZOLE SOD 40 MG TABEC PO SCH (09:07)
--- NOTE | 2019-03-19 09:14 | NUR ---
SPOKE TO MD SEGURA REGARDING NEW CONSULT MD AWARE OF CT RESULTS NO ORDERS RECEIVED AT THIS TIME
[2019-03-19 09:44] LABS: CREATINE KINASE MB 0.4 ng/mL (0-5.0)
[2019-03-19] MEDS: HYDROMORPHONE 2MG/ML 2 MG/ML ML IV PRN ×2 (11:46→23:58)
[2019-03-19] MEDS: ONDANSETRON HCL INJ 2MG/ML 2ML 2 MG/ML VIAL IV PRN (11:47)
--- NOTE | 2019-03-19 11:48 | NUR ---
MD Cristian ADAMSON ORDERED 2MG DILAUDID GIVEN NOW ALONG WITH KLONOPIN FOR PT PAIN AND ANXIETY GIVEN AT THIS TIME SPOKE WITH IMELDA WHO STATES PT CAN EAT. STATES HE WILL COMES SEE PT TODAY AND WILL MOST LIKEL HAVE IR DRAIN ABSCESS
--- NOTE | 2019-03-19 14:38 | Consultation ---
DATE OF CONSULTATION: 03/19/2019 CHIEF COMPLAINT: Abdominal pain. HISTORY OF PRESENT ILLNESS: The patient is a 68-year-old female, known to me from recent sigmoid resection for chronic constipation. The patient has been complaining of increasing lower abdominal pain on the left side. No fever or chills. The patient admits to persistent constipation with bowel movement every 3 days with the help of MiraLAX, stool softener with explosive diarrhea resulting from it. The patient states this has not changed since surgery. PAST MEDICAL HISTORY: Positive for diabetes, hypertension, history of C-spine stenosis, left renal tumor. PAST SURGICAL HISTORY: Positive for C-spine surgery, partial left nephrectomy, recent sigmoid resection, hysterectomy. ALLERGIES: THE PATIENT IS ALLERGIC TO MULTIPLE MEDICATIONS INCLUDING PENICILLIN, BARIUM, CHLORHEXIDINE, CIPRO, CODEINE, FLAGYL, AND BACTRIM. SOCIAL HABITS: The patient is a heavy smoker for years, which has reduced in amount. No history of alcohol abuse. REVIEW OF SYSTEMS: She has no chest pain or shortness of breath. PHYSICAL EXAMINATION: VITAL SIGNS: Stable, afebrile. GENERAL: She is awake, alert, in mild discomfort. HEENT: Sclerae anicteric. NECK: Supple. LUNGS: Clear. HEART: Regular rate and rhythm. ABDOMEN: Soft. There is a mass at the lateral aspect of the lower midline incision with some tenderness to palpation. EXTREMITIES: Without cyanosis or edema. LABORATORY DATA: White cell count is 9, hemoglobin of 12. Creatinine of 0.6. CT of the abdomen show an abdominal wall abscess at the left aspect of the transverse incision measuring 4 cm. ASSESSMENT: Abdominal wall abscess, status post colon surgery. Persistent constipation. Planned drainage of abdominal wall abscess, most likely percutaneous by Interventional Radiology as the patient does not want open surgery at this time. Continue to evaluate the constipation with rectal contrast enema. Duc Rubio MD DNJuan/MODL /[id number]
[2019-03-19] MEDS: DOCUSATE SODIUM 100 MG CAP PO SCH (15:17)
[2019-03-19] MEDS: POLYETHYLENE GLYCOL 3350 17 GM PACK PO SCH ×2 (15:17→22:28)
--- NOTE | 2019-03-19 18:03 | NUR ---
PT OFF FLOOR FOR CT OF PELVIS
[2019-03-19] MEDS ORDERED: DIATRIZOATE MEGL/DIATRIZOA SOD 30 ML BTL PO ONE (18:04)
--- NOTE | 2019-03-19 18:49 | NUR ---
PT BACK FROM CT AT THIS TIME
[2019-03-19] MEDS: OLMESARTAN 20 MG TAB PO SCH (20:51)
[2019-03-20] VITALS (7 sets, daily range): BP systolic 98–129; BP diastolic 50–71
[2019-03-20] MEDS: ONDANSETRON HCL INJ 2MG/ML 2ML 2 MG/ML VIAL IV PRN ×4 (00:29→21:39)
[2019-03-20] MEDS: METFORMIN HCL 500 MG TAB PO SCH ×4 (07:56→20:22)
[2019-03-20] MEDS: GLIMEPIRIDE 2 MG TAB PO SCH ×4 (08:33→21:00)
[2019-03-20] MEDS: PANTOPRAZOLE SOD 40 MG TABEC PO SCH (08:33)
[2019-03-20] MEDS: LIDOCAINE 5% PATCH TP SCH (08:33)
[2019-03-20] MEDS: DOCUSATE SODIUM 100 MG CAP PO SCH ×2 (08:33→21:00)
[2019-03-20] MEDS: POLYETHYLENE GLYCOL 3350 17 GM PACK PO SCH ×2 (08:33→21:39)
[2019-03-20] MEDS ORDERED: AMITIZA PO PRN (10:00)
[2019-03-20] MEDS ORDERED: SODIUM CHLORIDE 0.9% 250ML 250 ML ONE (10:23)
[2019-03-20] MEDS: CEFEPIME 1GM/NS 0.9% 50 ML 50 ML IV SCH ×2 (10:33→21:48)
--- NOTE | 2019-03-20 11:45 | Diagnostic Imaging Report ---
CT Pelvis Without IV Contrast INDICATION: Pelvic pain, ovarian cysts. TECHNIQUE: 5 mm collimation axial images obtained from the iliac crests to the symphysis pubis. Rectal contrast was administered. Dose reduction techniques used: Automated exposure control, adjustment of the mAs and/or kVp according to patient size, standardized low-dose protocol, and/or iterative reconstruction technique. COMPARISON: CT abdomen/pelvis 03/18/2019. Findings: Bowel: Small Bowel: Normal in caliber with normal wall thickness. Large Bowel: Enteric contrast extends from the rectum to the proximal transverse colon. There are stable postoperative changes of the sigmoid colon. No evidence of leak. Vascular engorgement anterior to the anastomosis is stable and likely chronic. There are several diverticula in the large bowel without associated inflammation. No large bowel dilatation, focal mural thickening, or pericolonic inflammation of the visualized large bowel. Appendix: Normal. Bladder: Contains excreted contrast from previous CT. No focal mural thickening or intraluminal mass. Lymph Nodes: No enlarged lymph nodes. The uterus is absent. There are no adnexal masses. Peritoneum/retroperitoneum: No free fluid or fluid collection. No free air. Bones: Mild degenerative changes of the spine. No focal osseous lesions. Soft tissues: Anterior abdominal wall phlegmonous collection in the inferior left hemiabdomen measures 2.4 x 4.7 x 3.7 cm and contains a few droplets of air (previously, 2.2 x 4.6 x 4.6 cm). This lies medially anterior to the rectus abdominis and along a scar in the lower abdominal wall. The overlying skin is thickened. There is no intraperitoneal communication. There is edema of the adjacent musculature. IMPRESSION: 1. Abdominal wall abscess is smaller contains a small amount of air without communication to the peritoneum. 2. Stable appearance of the anastomosis at the distal colon. No evidence of leak. 3. Diverticulosis coli. No evidence of diverticulitis. No fistulous communication of the bowel to the abdominal wall. Signed by: Dr. Pool Mayes MD on 03/20/2019 11:42 AM
[2019-03-20] MEDS: HYDROMORPHONE 2MG/ML 2 MG/ML ML IV PRN ×2 (12:26→21:39)
[2019-03-20] MEDS: CLONAZEPAM 1 MG TAB PO PRN (17:20)
--- NOTE | 2019-03-20 17:22 | NUR ---
PT REQUESTING HER GI MD ON CASE (MD Maribel ADAMSON) PAGING MD Cristian ADAMSON TO LET KNOW OF PT CONCERNS
[2019-03-20] MEDS: OLMESARTAN 20 MG TAB PO SCH (20:23)
[2019-03-21] VITALS (7 sets, daily range): BP systolic 105–141; BP diastolic 53–73
[2019-03-21 06:26] LABS: INR 0.88; PARTIAL THROMBOPLASTIN TIME 30.8 seconds (23.8-35.5); PROTHROMBIN TIME 12.4 seconds (11.9-14.5)
[2019-03-21 06:31] LABS: ANION GAP 13.6 mmol/L (8-16); BLOOD UREA NITROGEN 7 mg/dL (7-26); BUN/CREATININE RATIO 10 (6-25); CALCIUM 9.3 mg/dL (8.4-10.2); CARBON DIOXIDE 24 mmol/L (22-29); CHLORIDE 105 mmol/L (98-107); CREATININE, SERUM 0.71 mg/dL (0.57-1.11); EST GLOMERULAR FILTRATION RATE > 60 ML/MIN (60-); GLUCOSE 118 mg/dL (74-118); POTASSIUM 3.6 mmol/L (3.5-5.1); SODIUM 139 mmol/L (136-145)
[2019-03-21 06:41] LABS: BASOPHILS # (AUTO) 0.1 (0.0-0.1); BASOPHILS % 0.5 % (0.0-1.0); EOSINOPHILS # (AUTO) 0.1 (0.0-0.4); EOSINOPHILS % 1.3 % (0.0-6.0); HEMATOCRIT 39.1 % (34.2-44.1); HEMOGLOBIN 12.5 g/dL (12.0-16.0); LYMPHOCYTES # (AUTO) 2.7 (1.0-3.2); LYMPHOCYTES % 24.9 % (18.0-39.1); MEAN CORPUSCULAR HEMOGLOBIN 27.8 pg (28-32); MEAN CORPUSCULAR VOLUME 87.1 fL (81-99); MONOCYTES # (AUTO) 0.7 (0.2-0.8); MONOCYTES % 6.6 % (4.4-11.3); NEUTROPHILS # (AUTO) 7.1 (2.1-6.9); NEUTROPHILS % 66.4 % (38.7-80.0); PLATELET COUNT 270 x10e3/uL (140-360); RED BLOOD COUNT 4.49 x10e6/uL (3.6-5.1); RED CELL DISTRIBUTION WIDTH 13.8 % (11.7-14.4)
[2019-03-21] MEDS: GLIMEPIRIDE 2 MG TAB PO SCH ×4 (07:30→21:00)
[2019-03-21] MEDS: METFORMIN HCL 500 MG TAB PO SCH ×4 (09:00→21:00)
[2019-03-21] MEDS: POLYETHYLENE GLYCOL 3350 17 GM PACK PO SCH ×2 (09:00→21:25)
[2019-03-21] MEDS: DOCUSATE SODIUM 100 MG CAP PO SCH ×2 (09:00→21:25)
[2019-03-21] MEDS: LUBIPROSTONE 24 MCG CAP PO SCH ×2 (09:00→18:51)
[2019-03-21] MEDS: CEFEPIME 1GM/NS 0.9% 50 ML 50 ML IV SCH ×2 (10:11→22:39)
[2019-03-21] MEDS: LIDOCAINE 5% PATCH TP SCH (10:11)
[2019-03-21] MEDS: HYDROMORPHONE 2MG/ML 2 MG/ML ML IV PRN ×2 (10:12→15:50)
[2019-03-21] MEDS: ONDANSETRON HCL INJ 2MG/ML 2ML 2 MG/ML VIAL IV PRN ×2 (10:12→15:50)
--- NOTE | 2019-03-21 12:12 | NUR ---
EDUCATED ABOUT IMM, SIGNED, FILED IN CHART, WITH COPY LEFT WITH FAMILY AT BEDSIDE.
[2019-03-21] MEDS ORDERED: SODIUM CHLORIDE 0.9% 250ML 250 ML ONE (13:01)
[2019-03-21] MEDS ORDERED: LORAZEPAM 1 MG TAB PO ONE (13:30)
[2019-03-21] MEDS: PANTOPRAZOLE SOD 40 MG TABEC PO SCH (15:47)
--- NOTE | 2019-03-21 15:48 | Diagnostic Imaging Report ---
PROCEDURE: Drainage catheter placement Procedural Personnel Attending physician(s): Jin Bernardo MD Fellow physician(s): None Resident physician(s): None Advanced practice provider(s): None Pre-procedure diagnosis: Postoperative fluid collection Post-procedure diagnosis: Same Indication: Post-operative fluid collection Additional clinical history: None Complications: No immediate complications. IMPRESSION: Percutaneous placement of a 12 Congolese drainage catheter into the left anterior abdominal subcutaneous soft tissue fluid collection, yielding 20 mL of bloody fluid. Plan: Fluid for gram stain/culture. Flush drain 10ccNS every shift. Track drain output, to be removed when drainage <5cc/day x 3 consecutive days. PROCEDURE SUMMARY: - Soft tissue drainage catheter placement under ultrasound guidance - Additional procedure(s): None PROCEDURE DETAILS: Pre-procedure Consent: Informed consent for the procedure including risks, benefits and alternatives was obtained and time-out was performed prior to the procedure. Preparation: The site was prepared and draped using maximal sterile barrier technique including cutaneous antisepsis. Anesthesia/sedation Level of anesthesia/sedation: No sedation Anesthesia/sedation administered by: Independent trained observer under attending supervision with continuous monitoring of the patient?s level of consciousness and physiologic status Drainage catheter placement The patient was positioned supine. Initial imaging was performed. Local anesthesia was administered. The fluid collection was accessed using trocar technique and a drainage catheter was placed. Position of the drainage catheter within the fluid collection was confirmed. - Initial imaging findings: Subcutaneous fluid collection - Drainage catheter placed: 12Fr Uresil - External catheter securement: Non-absorbable suture - Post-drainage imaging findings: Not performed Contrast Contrast agent: None Radiation Dose None Additional Details Additional description of procedure: None Equipment details: None Specimens removed: Aspirated fluid was sent for analysis. Estimated blood loss (mL): Less than 10 Standardized report: [email or web address] Attestation Signer name: Jin Bernardo MD I attest that I was present for the entire procedure. I reviewed the stored images and agree with the report as written. Signed by: Jin Bernardo MD on 03/21/2019 3:44 PM
--- NOTE | 2019-03-21 16:08 | Progress Note ---
DATE: Internal Medicine Progress Note SUBJECTIVE: She seems to have drain placed on the abdominal wall area where she had a hematoma, essentially with some cellulitis around that. She was started on IV antibiotics. She has a drain well placed, draining blood. LABORATORY DATA: VITAL SIGNS: Blood pressure is 133/58, temperature 99.1, heart rate 61 per minute, respiratory rate 18 per minute, oxygen saturation 97%. HEART: Showed regular rhythm. Normal S1 and S2 sound. LUNGS: Clear bilaterally. ABDOMEN: Soft. She has a drain in the left lower quadrant with hematoma is with some redness around it. LABORATORY DATA: On the BMP; sodium 139, potassium 3.6, chloride 105 CO2 of 24, BUN 7, creatinine 0.71, glucose 118. On CBC; white count 10.6, hemoglobin 12.5, hematocrit 39.1, platelet count 270,000, PT 12.4, INR 0.88, PTT 30.8. AST 10, ALT 8, total bilirubin 0.4, alkaline phosphatase 71. FINAL IMPRESSION: 1. Abdominal wall hematoma with mild cellulitis. 2. Chronic pain syndrome. 3. Uncontrolled diabetes mellitus type 2 with diabetic neuropathy. 4. Narcotic induced constipation. PLAN OF TREATMENT: Continue cefepime 1 g IV twice a day. Continue Lidoderm patch 12 hours on, 12 hours off, clonazepam 1 mg q.8 hours as needed, metformin 500 mg q.6 hours, Tylenol 3 one tablet twice a day as needed for pain. Continue Benicar 20 mg daily, glimepiride 2 mg daily, Amitiza 24 mcg p.o. twice a day, Zofran 4 mg IV q.4 hours as needed, Dilaudid 2 mg IV q.4 hours as needed, Protonix 40 mg daily, and Colace [address] twice a day[address] Dr[address] Drew Riddle has been consulted from the Gastroenterology point of view. Also, the patient has some lesion in the kidneys. We are going to order an MRI with kidney protocol to rule out any adenoma or any other kidney mass abnormality. MD EDDIE Davis/DELANO /[id number]
[2019-03-21] MEDS ORDERED: SODIUM CHLORIDE 0.9% 100 ML 100 ML ONE (17:26)
[2019-03-21] MEDS ORDERED: GADOBENATE DIMEGLUMINE 1 ML IV ONE (17:26)
[2019-03-21] MEDS ORDERED: CLONAZEPAM 1 MG TAB PO PRN (18:00)
[2019-03-21] MEDS: OLMESARTAN 20 MG TAB PO SCH (21:00)
[2019-03-22] VITALS (9 sets, daily range): BP systolic 97–123; BP diastolic 53–65
[2019-03-22 05:51] LABS: BASOPHILS # (AUTO) 0.1 (0.0-0.1); BASOPHILS % 0.7 % (0.0-1.0); EOSINOPHILS # (AUTO) 0.2 (0.0-0.4); EOSINOPHILS % 2.4 % (0.0-6.0); HEMATOCRIT 37.1 % (34.2-44.1); LYMPHOCYTES # (AUTO) 2.8 (1.0-3.2); LYMPHOCYTES % 36.5 % (18.0-39.1); MEAN CORPUSCULAR HGB CONC 32.3 g/dL (31-35); MEAN CORPUSCULAR VOLUME 86.7 fL (81-99); MONOCYTES # (AUTO) 0.5 (0.2-0.8); MONOCYTES % 6.6 % (4.4-11.3); NEUTROPHILS # (AUTO) 4.1 (2.1-6.9); NEUTROPHILS % 53.5 % (38.7-80.0); PLATELET COUNT 277 x10e3/uL (140-360); RED BLOOD COUNT 4.28 x10e6/uL (3.6-5.1); RED CELL DISTRIBUTION WIDTH 13.8 % (11.7-14.4)
[2019-03-22 06:01] LABS: ALANINE AMINOTRANSFERASE 9 IU/L (0-55); ALBUMIN 3.2 g/dL (3.5-5.0); ALBUMIN/GLOBULIN RATIO 0.9 (0.8-2.0); ALKALINE PHOSPHATASE 82 IU/L (40-150); ANION GAP 14.6 mmol/L (8-16); BLOOD UREA NITROGEN 7 mg/dL (7-26); BUN/CREATININE RATIO 10 (6-25); CALCIUM 9.3 mg/dL (8.4-10.2); CARBON DIOXIDE 25 mmol/L (22-29); CHLORIDE 103 mmol/L (98-107); CREATININE, SERUM 0.72 mg/dL (0.57-1.11); EST GLOMERULAR FILTRATION RATE > 60 ML/MIN (60-); GLUCOSE 122 mg/dL (74-118); POTASSIUM 3.6 mmol/L (3.5-5.1); SODIUM 139 mmol/L (136-145)
--- NOTE | 2019-03-22 07:10 | NUR ---
pt alert resp even and unlabored at this time no distress noted , pt has no c/o pain when asked, pt has drain to gravity, no c/o pain at this time, call light in reach.
[2019-03-22] MEDS: METFORMIN HCL 500 MG TAB PO SCH ×4 (07:30→20:42)
[2019-03-22] MEDS: GLIMEPIRIDE 2 MG TAB PO SCH ×4 (08:57→20:41)
[2019-03-22] MEDS: PANTOPRAZOLE SOD 40 MG TABEC PO SCH (08:58)
[2019-03-22] MEDS: POLYETHYLENE GLYCOL 3350 17 GM PACK PO SCH ×2 (08:58→20:49)
[2019-03-22] MEDS: CEFEPIME 1GM/NS 0.9% 50 ML 50 ML IV SCH ×2 (08:58→21:49)
[2019-03-22] MEDS: LACTOBACILLUS ACIDOPHILUS CAPSULE PO SCH ×3 (08:58→20:49)
[2019-03-22] MEDS: DOCUSATE SODIUM 100 MG CAP PO SCH ×2 (08:58→20:49)
[2019-03-22] MEDS: LUBIPROSTONE 24 MCG CAP PO SCH ×2 (08:58→17:00)
[2019-03-22] MEDS: LIDOCAINE 5% PATCH TP SCH (09:00)
--- NOTE | 2019-03-22 09:43 | Progress Note ---
DATE: Internal Medicine Progress Note SUBJECTIVE: The patient is doing well. No significant complaint. OBJECTIVE: HEART: Showed regular rhythm. Normal S1, S2 sound. LUNGS: Clear bilaterally. ABDOMEN: Soft. She had a drain in the abdominal area. FINAL IMPRESSION: 1. Left abdominal wall hematoma with some mild cellulitis. 2. Uncontrolled diabetes mellitus type 2 with diabetic neuropathy. 3. Chronic pain syndrome. 4. Narcotic induced constipation. PLAN OF TREATMENT: We are going to continue with current medication regimen. Continue drain until trace no more blood left in hematoma. Medications are going to be: 1. Cefepime 1 g IV twice a day. 2. She is going to continue with Tylenol No. 3 one tablet every 12 hours as needed for pain. 3. Clonazepam 1 mg q.8 hours as needed for anxiety. 4. Colace 100 mg twice a day. 5. Amaryl 2 mg at bedtime. 6. Dilaudid 2 mg IV q.4 hours as needed for severe pain. 7. Lactobacillus acidophilus one tablet three times a day. 8. Lidoderm patch 12 hours on, 12 hours off. 9. Amitiza 24 mcg p.o. twice a day for narcotic induced constipation. 10. Metformin 500 mg before bedtime because of history of diabetes mellitus type 2. 11. Continue Benicar 20 mg daily. 12. Continue Zofran 4 mg IV q.4 hours as needed for nausea and vomiting. 13. Protonix 40 mg daily. MD EDDIE Davis/DELANO /[id number]
--- NOTE | 2019-03-22 10:30 | NUR ---
flushed pt's drain with 10 cc. pt tolerate well.
[2019-03-22] MEDS: HYDROMORPHONE 2MG/ML 2 MG/ML ML IV PRN ×2 (10:39→23:15)
[2019-03-22] MEDS: ONDANSETRON HCL INJ 2MG/ML 2ML 2 MG/ML VIAL IV PRN ×2 (10:39→23:15)
[2019-03-22] MEDS: VANCOMYCIN 1GM/NS 250 ML 250 ML IV SCH (10:39)
--- NOTE | 2019-03-22 13:41 | Consultation ---
DATE OF CONSULTATION: 03/22/2019 INFECTIOUS DISEASE CONSULT REASON FOR CONSULTATION: Cellulitis of the abdominal wall. Thank you, Dr. Lopez, for asking me to see this patient, who was admitted through the emergency department. HISTORY OF PRESENT ILLNESS: The patient is a 68-year-old woman referred for cellulitis of the abdominal wall. She presented to the emergency department with nausea, vomiting, abdominal pain, weight loss, and generalized weakness. There was no fever or chills. She had a partial sigmoid colon resection several weeks earlier. In the emergency department, she was noted to have temperature of 97.9 degrees Fahrenheit, pulse rate 63, respiratory rate 18, blood pressure 125/75, and oxygen saturation 98% on room air. Initial laboratory studies showed blood leukocyte count of 13,180 with 66.9% neutrophils, BUN 7, and creatinine 0.77. CT scan of the abdomen and pelvis showed abscess in the subcutaneous tissue of the left anterior pelvic wall, postoperative changes, sigmoid diverticulosis without diverticulitis, and right kidney lesion. The patient was evaluated by the Interventional Radiology Service and successfully underwent percutaneous drainage. PAST MEDICAL HISTORY: Diabetes mellitus type 2, hypertension, hyperlipidemia, mitral valve prolapse, neuropathy and gastroesophageal reflux disease. PAST SURGICAL HISTORY: C-spine surgery, partial left nephrectomy for renal tumor and recent partial sigmoid resection. ALLERGIES: PENICILLIN, CIPROFLOXACIN, BACTRIM, FLAGYL?, CHLORHEXIDINE, AND CODEINE. THE PATIENT DENIES ALLERGY TO BARIUM. MEDICATIONS: See MAR. The current antibiotics are cefepime 1 g IV piggyback q.12 hours and vancomycin 1 g IV piggyback q.24 hours. IMMUNIZATION: The patient received pneumococcal vaccination in the past. FAMILY HISTORY: Noncontributory. SOCIAL HISTORY: The patient is a heavy smoker for many years, but is cutting down recently. No alcohol use. REVIEW OF SYSTEMS: As per history of present illness. There is no fever or chills, but the patient still reports nausea and abdominal pain and is afraid to eat due to pain. She denies cough, shortness of breath, dysuria or increased frequency of urination. Also she reports constipation. PHYSICAL EXAMINATION: GENERAL: No acute distress. VITAL SIGNS: T-max 99.7, pulse rate 62, respiratory rate 20, blood pressure 111/56, weight 163 pounds. HEENT: Normocephalic. There is no icterus or injection of conjunctivae. There is no ear or nasal discharge. Moist oral mucosa. No pharyngeal erythema or exudate. NECK: Supple. No meningismus. LUNGS: Good air entry bilaterally. HEART: Normal S1, S2. Regular. ABDOMEN: Left lower quadrant drainage tube is in place. There is mild erythema of the anterior abdominal wall. The lower abdominal wall horizontal incision scar is noted. Soft. EXTREMITIES: There is no edema, clubbing, or cyanosis. SKIN: There is mild acute erythema of the lower abdominal wall. No rash. WOODS OVERSEER: Awake, alert, and oriented to person, place, and time. Nonfocal. LABORATORY AND DIAGNOSTICS: WBC 7570, hemoglobin 12, platelet 277,000, neutrophils 53.5, lymphocytes 36.5, monocytes 6.6, eosinophils 2.4, and basophils 0.7. BUN 7, creatinine 0.72, AST 12, ALT 9, alkaline phosphatase 82, total bilirubin 0.7. Blood glucose 128. Abdominal wall collection drainage culture is pending. Abdominal wall MRI report is also pending. IMPRESSION: 1. Anterior abdominal wall abscess/cellulitis, status post drainage. 2. Nausea and constipation. 3. Status post partial sigmoid resection. 4. Diabetes mellitus type 2 with neuropathy. PLAN: 1. Await aspirate culture result. Also check pelvic and abdominal MRI report. 2. GI input has been noted. MD CARIDAD Oneal/DELANO /[id number] MTDD
--- NOTE | 2019-03-22 16:18 | Diagnostic Imaging Report ---
EXAMINATION: MRI Abdomen with and without contrast. TECHNIQUE: Axial T1 nonfat sat in and out of phase, axial T2 fat sat, coronal T2 nonfat sat, axial DWI and ADC MR images of the abdomen were obtained before and after the administration of 15 cc of gadolinium. Axial T1 fat sat GRE dynamic images in precontrast, arterial, venous and delayed phases were obtained. CLINICAL HISTORY:Abdominal wall abscess, kidney mass COMPARISON: CT abdomen and pelvis 03/18/2019 FINDINGS: LOWER THORAX: Unremarkable. LIVER: The hepatic contour is normal.. Mild signal dropout on out of phase images consistent with mild steatosis (calculated hepatic fat fraction 9.1%, calculated hepatic fat percentage 7.8%). No focal hepatic lesions. BILIARY: No intrahepatic biliary ductal dilation. Mild prominence of the common bile duct, which measures approximately 8 mm at the aleksey hepatis. No intraluminal filling defects. Normal luminal contour and tapering to the ampulla.. The gallbladder is unremarkable, without stones or wall thickening.. PANCREAS: No ductal dilation. 0.4 cm T2 hyperintense, nonenhancing lesion in the pancreatic distal body (series 6, image 16). No other focal lesions.. SPLEEN: No splenomegaly. ADRENALS: Stable T1 and T2 isointense 1.6 cm nodule in the left adrenal gland (series 5, image 18). Calculated adrenal to spleen CSI ratio 0.99, calculated adrenal signal intensity index 5.8%). Right adrenal gland is unremarkable. KIDNEYS: Right: 1.7 x 1.7 cm T2 hyperintense, T1 hypointense lesion in the mid to inferior aspect, corresponding to the abnormality seen on CT. This lesion shows internal mildly enhancing components on arterial phase (series 11, image 91 and series 100, image 39), although no other enhancement is noted on subsequent phases. No definite restricted diffusion. Subcentimeter T2 hyperintense nonenhancing lesions, consistent with simple cysts. A 1.0 cm T1 hyperintense, T2 minimally hyperintense lesion in the inferior pole (series 3, image 68), shows no postcontrast enhancement, consistent with a proteinaceous/hemorrhagic cyst. No hydronephrosis, hydroureter or evidence of obstruction. Left:. Subcentimeter T2 hyperintense are nonenhancing lesions, which are too small to characterize, consistent with simple cysts. No hydronephrosis, or. No solid enhancing masses. PERITONEUM / RETROPERITONEUM: No upper abdominal free fluid. GI TRACT: The visualized bowel shows no dilation or obstruction. LYMPH NODES: No upper abdominal lymphadenopathy. VESSELS: The celiac trunk, superior and inferior mesenteric and bilateral renal arteries are patent. The portal, superior mesenteric and splenic veins are patent. No collateral circulation. BONES AND SOFT TISSUES: No abnormal bone marrow signal. No soft tissue abnormalities. IMPRESSION: 1. 1.7 cm T2 hyperintense, T1 hypointense lesion in the mid to inferior right kidney corresponding to the abnormality seen on recent CT. 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 Renal ultrasound is recommended for further evaluation. 2. 1.6 cm nodule in the left adrenal gland remains indeterminate. This may represent a lipid poor adenoma. CT abdomen with adrenal mass protocol for washout is recommended for further evaluation. Signed by: Dr. Brian Rodriguez M.D. on 03/22/2019 4:15 PM
--- NOTE | 2019-03-22 19:02 | NUR ---
[facility]. PT RESTING COMFORTABLY IN BED AT THIS TIME. BED IS IN LOW LOCKED POSITION AND CALL LIGHT IS IN REACH. WILL CONTINUE TO MONITOR PATIENT.
--- NOTE | 2019-03-22 19:05 | NUR ---
report given to oncoming nurse . pt stable.
[2019-03-22] MEDS: OLMESARTAN 20 MG TAB PO SCH (20:42)
[2019-03-22] MEDS: CLONAZEPAM 1 MG TAB PO PRN (20:49)
--- NOTE | 2019-03-22 22:20 | NUR ---
PT REPORTS HAVING HER 3RD SMALL SOFT BM TONIGHT. PT REPORTS MILD PAIN BUT DOES NOT WANT PAIN MEDICATION AT THIS TIME. WILL CONTINUE TO MONITOR PT.
[2019-03-22] MEDS ORDERED: PANTOPRAZOLE 40 MG 10ML VIAL IV STA (22:58)
[2019-03-22] MEDS ORDERED: PANTOPRAZOLE 40 MG 10ML VIAL IV SCH (23:00)
[2019-03-22] MEDS ORDERED: CHLORDIAZEPOXIDE/CLIDINIUM 1 CAP PO STA (23:02)
[2019-03-23] VITALS (7 sets, daily range): BP systolic 110–132; BP diastolic 58–72
--- NOTE | 2019-03-23 07:02 | NUR ---
BEDSIDE REPORT GIVEN TO OLIVIER CARTAGENA AT THIS TIME.
[2019-03-23] MEDS: METFORMIN HCL 500 MG TAB PO SCH ×3 (07:30→16:00)
[2019-03-23] MEDS: GLIMEPIRIDE 2 MG TAB PO SCH ×3 (08:20→16:00)
[2019-03-23] MEDS: POLYETHYLENE GLYCOL 3350 17 GM PACK PO SCH (08:20)
[2019-03-23] MEDS: DOCUSATE SODIUM 100 MG CAP PO SCH (08:20)
[2019-03-23] MEDS: LACTOBACILLUS ACIDOPHILUS CAPSULE PO SCH ×2 (08:20→16:00)
[2019-03-23] MEDS: LUBIPROSTONE 24 MCG CAP PO SCH ×2 (08:20→16:00)
[2019-03-23] MEDS: CHLORDIAZEPOXIDE/CLIDINIUM 1 CAP PO SCH ×3 (08:20→16:00)
[2019-03-23] MEDS: LIDOCAINE 5% PATCH TP SCH (08:33)
[2019-03-23] MEDS ORDERED: PANTOPRAZOLE 40 MG 10ML VIAL IV SCH (09:00)
[2019-03-23] MEDS: ONDANSETRON HCL INJ 2MG/ML 2ML 2 MG/ML VIAL IV PRN (10:25)
[2019-03-23] MEDS: HYDROMORPHONE 2MG/ML 2 MG/ML ML IV PRN (10:25)
[2019-03-23] MEDS: VANCOMYCIN 1GM/NS 250 ML 250 ML IV SCH (10:25)
--- NOTE | 2019-03-23 11:37 | Diagnostic Imaging Report ---
EXAM: Renal Ultrasound INDICATION: ^renal cyst ^[id number] ^1054 ^N COMPARISON: None TECHNIQUE: Transverse and longitudinal images of the kidneys and bladder were obtained. FINDINGS: Right Kidney: Length: 10.8 cm Appearance: Normal echogenicity. Collecting system: No hydronephrosis Stones: None Cyst/Mass: Lateral lower pole 1.8 x 1.5 x 1.8 cm anechoic simple cyst. Left Kidney: Length: 8.8 cm Appearance: Normal echogenicity. Collecting system: No hydronephrosis Stones: None Cyst/Mass: None Bladder: No mass or calculi. Left ureteral jet seen. Prevoid volume estimate of 62 cc. Incidental note of hyperechoic liver parenchyma. IMPRESSION: No renal calculi or hydronephrosis. Right lower pole simple cyst. Hepatic steatosis. Signed by: Jin Bernardo MD on 03/23/2019 11:34 AM
--- NOTE | 2019-03-23 11:45 | Progress Note ---
DATE: Internal Medicine Progress Note SUBJECTIVE: The patient is complaining of constipation. PHYSICAL EXAMINATION: VITAL SIGNS: Blood pressure 123/58, temperature 97.8, heart rate 62 per minute, respiratory rate 19 per minute, and oxygen saturation 97%. ABDOMEN: Soft and nontender. No distention. No visceromegaly. The patient had a drain on the left side of the abdomen, which is draining bloody drainage. Culture showing evidence of Streptococcal Viridans and Staphylococcus aureus. The patient right now is on vancomycin and cefepime. LABORATORY DATA: On the BMP; sodium 139, potassium 3.6, chloride 103, CO2 of 25, BUN 7, creatinine 0.72, and glucose 122. CBC; white blood count 7.57, hemoglobin 12.0, hematocrit 37.1, and platelet count 277,000. IMPRESSION: 1. Abdominal wall hematoma with cellulitis. 2. Uncontrolled diabetes mellitus type 2 with diabetic neuropathy. 3. Chronic pain syndrome. 4. Narcotic induced constipation. PLAN OF TREATMENT: Continue vancomycin. Continue cefepime. Continue metformin. Continue diabetic diet. Continue Protonix. Continue Colace. Continue lactobacillus acidophilus. Continue Dilaudid 2 mg IV every 4 hours as needed. Continue glimepiride 2 mg daily, Amitiza 24 mcg p.o. twice a day, and clonazepam 1 mg every 8 hours as needed. We are going to also order renal ultrasound. Consult Dr. Murphy because of the lesion on the right kidney, which might be a cyst. relationship manager will be working to evaluate the patient for transfer to [facility]. MD EDDIE Davis/DELANO /[id number]
[2019-03-23] MEDS: CEFEPIME 1GM/NS 0.9% 50 ML 50 ML IV SCH (11:50)
--- NOTE | 2019-03-23 18:55 | NUR ---
rounded with stone sandblaster nurse, patient aware of change and in no distress. call anderson within reach, bed in lowest position and family at bedside.
--- NOTE | 2019-03-23 19:41 | NUR ---
Report called to Zeinab hernandez Perfecto. Ambulance is being called now.
--- NOTE | 2019-03-23 21:49 | Consultation ---
DATE OF CONSULTATION: 03/23/2019 Urology Consultation Consultation is called by Dr. Lopez. CHIEF COMPLAINT/REASON FOR CONSULTATION: Renal masses. HISTORY OF PRESENT ILLNESS: Ms. Celaya is a very pleasant 68-year-old female patient, who has been seen many years ago by Dr. Oswaldo Murphy, has been dialyzed previously, bilateral renal masses, had a left partial nephrectomy by Dr. Car in [place] per the patient, there was benign pathology. The patient denied dysuria, denied gross hematuria. PAST MEDICAL HISTORY: Notable for diabetes mellitus, hypertension, chronic pain, gastroesophageal reflux disease, mitral valve prolapse, C-spine surgery, partial sigmoid colectomy, and left partial nephrectomy. MEDICATIONS: Please see MAR. ALLERGIES: BACTRIM, HYDROCODONE, AUGMENTIN, ISOTOPES, CIPRO, PENICILLIN, AND CODEINE. SOCIAL HISTORY: Heavy tobacco use. FAMILY HISTORY: Denied urologic stones or malignancies. REVIEW OF SYSTEMS: Noncontributory other than problems mentioned above for 12 organ systems. PHYSICAL EXAMINATION: GENERAL: Elderly female, in no distress. VITAL SIGNS: Temperature 97.6, pulse 56, respirations 18, and blood pressure 118/58. HEENT: Sclerae anicteric. NECK: Supple. BACK: Without costovertebral tenderness bilaterally. ABDOMEN: Soft. It is nontender. It is nondistended. No palpable mass. No palpable hernias. No palpable adenopathy. : Normal female genitalia. EXTREMITIES: No edema. NEURO: Moves all 4 extremities on command. PSYCH: Alert and mood appropriate. SKIN: Intact. Normal color. PERTINENT LABORATORY DATA: Sodium 139, potassium 3.6, chloride 103, bicarb 25, BUN 7, creatinine 0.72, and glucose 122. Hemoglobin 12, hematocrit 37, platelet count 277,000, and white cell count 7570. PT 12.4 and PTT of 30.8. Urinalysis, 0-[address] scan revealing a 1.6 cm left adrenal mass and 1.7 cm right lower pole renal mass, bilateral renal cysts. IMPRESSION: 1. Right lower pole 1.7 cm mass. 2. 1.6 cm left adrenal mass. 3. Bilateral renal cysts. 4. Urinary tract infection. PLAN: On exam, I chaperoned by many other nurse, would provide surveillance for these masses. A question of urinary tract infection was present on admission. We will follow the patient. As she is asymptomatic at this time. Thank you for allowing me to participate in the care of your patient. We will be happy to follow along with you. MD TREVON Gold/MODL /[id number] cc: Nasir Lopez MD
== END 2019-03-23 20:47 | disposition home or self-care (01) | DRG 603 ==
LOC: ER 16:58 → ERHOLD 22:31 → MED/SURG 22:40
PROVIDERS: ADMIT Internal Medicine; ATTEND Internal Medicine
PROC: 0W9F30Z Drainage of Abdominal Wall with Drainage Device, Percutaneous Approach (ICD-10-PCS; principal; 2019-03-21)
DX: L02.211 Cutaneous abscess of abdominal wall (principal); N39.0 Urinary tract infection, site not specified; E11.9 Type 2 diabetes mellitus without complications; I10 Essential (primary) hypertension; R11.0 Nausea; K59.00 Constipation, unspecified; G89.4 Chronic pain syndrome; E11.65 Type 2 diabetes mellitus with hyperglycemia; E11.40 Type 2 diabetes mellitus with diabetic neuropathy, unspecified; K59.03 Drug induced constipation; T40.605A Adverse effect of unspecified narcotics, initial encounter; Z90.49 Acquired absence of other specified parts of digestive tract; R16.0 Hepatomegaly, not elsewhere classified; E27.9 Disorder of adrenal gland, unspecified; N28.1 Cyst of kidney, acquired
CPT/HCPCS: 36415; 49406; 72192; 74177; 74183; 74470; 76770; 80048; 80053; 81001; 82550; 82553; 82948; 83690; 83735; 84100; 84484; 85025; 85610; 85730; 87071; 87186; 87205; 88112; 88305; 93306; 99284; C1729; J0692; J2405; J3370; J7050; Q9967

== ENCOUNTER 2020-10-10 11:27 | Emergency (ER) | payer MEDICARE ==
[~2020-10-10] VITALS: Ht 162.6 cm; Wt 50.8 kg
[~2020-10-10 11:27] MED LIST changes: +AMITIZA24 MCG PO; +MIRALAX17 GM PO; +OLMESARTAN MEDO20 MG PO; +TYLENOL WITH C1 EACH PO
[2020-10-10] MEDS ORDERED: SODIUM CHLORIDE 0.9% 1000ML 1,000 ML IV STA (12:02)
[2020-10-10] MEDS ORDERED: MORPHINE SULFATE INJ 4 MG/ML INJ 1ML IV STA (12:02)
[2020-10-10] MEDS ORDERED: DIATRIZOATE MEGL/DIATRIZOA SOD 30 ML BTL PO ONE (12:06)
[2020-10-10] MEDS ORDERED: PROMETHAZINE 25MG/ NS 50ML (IV) IV ONE (12:15)
[2020-10-10] MEDS ORDERED: SODIUM CHLORIDE FLUSH 10 ML SYR INJ PRN (12:15)
[2020-10-10] MEDS ORDERED: IOPAMIDOL 370 MG/ML 200 ML INFUS..BTL INJ ONE (12:18)
[2020-10-10] MEDS ORDERED: SODIUM CHLORIDE 0.9% 50ML 50 ML ONE ×2 (12:18→12:21)
[2020-10-10] MEDS ORDERED: PROMETHAZINE HCL (IM) 25 MG/ML VIAL IM ONE (12:20)
[2020-10-10] MEDS ORDERED: SODIUM CHLORIDE 0.9% 1000ML 1,000 ML ONE (12:21)
[2020-10-10] MEDS ORDERED: MORPHINE SULFATE INJ 4 MG/ML INJ 1ML ONE (12:21)
[2020-10-10] MEDS ORDERED: DICYCLOMINE HCL 20 MG/2 ML VIAL IM ONE ×2 (14:45→14:49)
[2020-10-10] MEDS ORDERED: METHYLPREDNISOLONE SOD SUCC 125 MG/2ML VIAL IV ONE (14:45)
[2020-10-10] MEDS ORDERED: PHENERGAN SUPP25 MG PR (14:48)
[2020-10-10] MEDS ORDERED: CIPRO500 MG PO (14:48)
[2020-10-10] MEDS ORDERED: ONDANSETRON ODT8 MG PO (14:48)
[2020-10-10] MEDS ORDERED: PREDNISONE20 MG PO (14:48)
[2020-10-10] MEDS ORDERED: CLINDAMYCIN HC300 MG PO (14:48)
[2020-10-10] MEDS ORDERED: DICYCLOMINE HCL20 MG PO (14:48)
[2020-10-10] MEDS ORDERED: METHYLPREDNISOLONE SOD SUCC 125 MG/2ML VIAL ONE (14:49)
[2020-10-10] MEDS ORDERED: MAGNESIUM CITR296 ML PO (14:50)
== END 2020-10-10 15:05 | disposition home or self-care (01) ==
LOC: FSED 12:05
DX: R10.84 Generalized abdominal pain (principal); K52.9 Noninfective gastroenteritis and colitis, unspecified; K59.00 Constipation, unspecified; I10 Essential (primary) hypertension; E13.9 Other specified diabetes mellitus without complications; J44.9 Chronic obstructive pulmonary disease, unspecified; K21.9 Gastro-esophageal reflux disease without esophagitis; I34.1 Nonrheumatic mitral (valve) prolapse; M54.9 Dorsalgia, unspecified; G89.29 Other chronic pain
CPT/HCPCS: 74177; 99284; J0500; J2270; J2550; J2930; J7030; Q9967